=== PATIENT | female | born 1960 | race Caucasian/White ===

== ENCOUNTER → 2016-05-01 | Outpatient (CLI) | payer OTHER ==
--- NOTE | 2016-05-01 20:02 | WWHP ---
DATE OF SERVICE: 05/01/2016 CHIEF COMPLAINT: Patient is here for her routine gynecologic exam and mammogram. HPI: This is a 55-year-old G3, P2-0-1-2 with an LMP of 1988. She is status post vaginal hysterectomy for benign reasons. The patient is without gynecologic complaints. PAST MEDICAL HISTORY: Unremarkable. Her primary care physician is Dr. Li. MEDICATIONS: Centrum multivitamin 1 daily. ALLERGIES: No known drug allergies. PAST SURGICAL HISTORY: Vaginal hysterectomy at age 28. Past [employer] and family histories are unchanged from the 2015 H&P. SOCIAL HISTORY: She denies tobacco use. She has 0 to 2 alcoholic drinks per week and states she occasionally uses marijuana. She denies any other drug use. She has been a since 2006 and is retired. REVIEW OF SYSTEMS: Weight has been stable. RESPIRATORY: She is getting over a cold. She denies cardiac or GI problems. PHYSICAL EXAM: Blood pressure 153/92. Height 5 feet 4 inches. Weight 163 pounds. Temperature 97.2, pulse 71. This a well-developed, well-nourished white female who is alert and oriented x3 in no acute distress. HEENT is within normal limits. NECK: Supple without mass or thyromegaly. CHEST AND LUNGS: Clear to auscultation. HEART: Regular rate and rhythm. Breasts are without mass or discharge. There is central nipple inversion which she states she had throughout most of her life. Axillary exam is negative for adenopathy. BACK: Negative for CVA tenderness. ABDOMEN: Soft, nontender, without palpable masses. PELVIC EXAM: External genitalia reveals mild atrophy without lesions. Vagina reveals mild atrophy without lesions. There is no evidence of prolapse. Bimanual exam is negative for mass or tenderness. Rectovaginal exam is negative for mass or tenderness and is negative for occult blood. EXTREMITIES: Nontender. IMPRESSION: 1. A 55-year-old menopausal female, status post vaginal hysterectomy for benign reasons with normal gynecologic exam. 2. Elevated blood pressure. PLAN: 1. Pap smears have been discontinued. 2. Self-breast examination was discussed. 3. Mammogram will be done today. 4. Her blood pressure elevation was discussed, and I have recommended that she follow up with her primary care physician in the near future. She states she has an appointment with Dr. Li on 05/09/2016 and will discuss this with him. I have also recommended home blood pressure checks since she does have access to blood pressure machine. 5. Screening colonoscopy was recommended, since she has never had this done and Dr. Bran's card was given to patient for this. 6. Osteoporosis prevention was discussed. 7. She will return in one year. Copy being sent to Dr. Li and no longer being sent to Dr. Castro.
--- NOTE | 2016-05-02 08:10 | MM ---
Reason for exam: screening (asymptomatic). Last mammogram was performed 1 year and 4 months ago. Physical Findings: A clinical breast exam by your physician is recommended on an annual basis and results should be correlated with mammographic findings. MG 3D Screening Mammo W/Cad Bilateral CC and MLO view(s) were taken. Prior study comparison: January 10, 2015, bilateral MG screening mammo w CAD. January 04, 2014, bilateral MG screening mammo w CAD. The breast tissue is almost entirely fat. Asymmetric breast tissue in the right breast. No significant changes when compared with prior studies. ASSESSMENT: Benign, BI-RAD 2 RECOMMENDATION: Routine screening mammogram of both breasts in 1 year.
== END | disposition home or self-care (01) ==
LOC: WWCWWP 09:02
PROVIDERS: ATTEND Obstetrics & Gynecology
DX: Z12.31 Encounter for screening mammogram for malignant neoplasm of breast (principal)
CPT/HCPCS: 77063; G0202

== ENCOUNTER → 2016-09-18 | Outpatient (CLI) | payer OTHER ==
--- NOTE | 2016-09-18 10:02 | XR ---
EXAMINATION TYPE: XR chest 2V DATE OF EXAM: 09/18/2016 COMPARISON: NONE INDICATION: Recent cough TECHNIQUE: Frontal and lateral views of the chest are obtained. FINDINGS: The heart size is normal. The pulmonary vasculature is normal. The lungs are clear. IMPRESSION: 1. No acute pulmonary process.
== END | disposition home or self-care (01) ==
LOC: RADXRMAIN 09:22
PROVIDERS: ATTEND Internal Medicine
DX: J06.9 Acute upper respiratory infection, unspecified (principal)
CPT/HCPCS: 71020

== ENCOUNTER → 2017-03-24 | Outpatient (CLI) | payer OTHER ==
[2017-03-24 12:12] LABS: Basophils % (A) 0 %; Eosinophils # (A) 0.1 k/uL (0-0.7); Eosinophils % (A) 2 %; HCT 47.3 % (34.0-46.0); HGB 15.2 gm/dL (11.4-16.0); Lymphocytes # (A) 1.4 k/uL (1.0-4.8); Lymphocytes % (A) 18 %; MCH 32.3 pg (25.0-35.0); MCHC 32.2 g/dL (31.0-37.0); MCV 100.4 fL (80.0-100.0); Mean Platelet Volume 7.5; Monocytes # (A) 0.4 k/uL (0-1.0); Monocytes % (A) 5 %; Neutrophils # (A) 5.7 k/uL (1.3-7.7); Neutrophils % (A) 74 %; Platelet Count 312 k/uL (150-450); RBC 4.72 m/uL (3.80-5.40); RDW 12.6 % (11.5-15.5); WBC 7.8 k/uL (3.8-10.6)
[2017-03-24 12:25] LABS: ALT 44 U/L (9-52); AST 31 U/L (14-36); Albumin 4.4 g/dL (3.5-5.0); Alkaline Phosphatase 105 U/L (38-126); Anion Gap 11 mmol/L; Blood Urea Nitrogen 11 mg/dL (7-17); Carbon Dioxide 27 mmol/L (22-30); Chloride 104 mmol/L (98-107); Cholesterol 237 mg/dL (<200); Creatine Kinase 27 U/L (30-135); Glucose 103 mg/dL (74-99); HDL Cholesterol 89 mg/dL (40-60); LDL Cholesterol,Calculated 121 mg/dL (0-99); Potassium 4.6 mmol/L (3.5-5.1); Sodium 142 mmol/L (137-145); Total Bilirubin 0.3 mg/dL (0.2-1.3); Total Protein 7.2 g/dL (6.3-8.2); Triglycerides 137 mg/dL (<150)
[2017-03-24 13:56] LABS: C Reactive Protein <5.0 mg/L (<10.0)
[2017-03-24 14:38] LABS: Erythrocyte Sedimentation Rate 7 mm/hr (0-20)
== END | disposition home or self-care (01) ==
LOC: LABWHC1 11:35
PROVIDERS: ATTEND Internal Medicine
DX: Z00.00 Encounter for general adult medical examination without abnormal findings (principal); G47.00 Insomnia, unspecified; D64.9 Anemia, unspecified; E78.5 Hyperlipidemia, unspecified; E55.9 Vitamin D deficiency, unspecified
CPT/HCPCS: 36415; 80053; 80061; 82306; 82550; 85025; 85652; 86140

== ENCOUNTER 2017-05-03 10:50 | Emergency (ER) | payer OTHER ==
[2017-05-03 10:59] VITALS: RESP 16
--- NOTE | 2017-05-03 13:47 | XR ---
EXAMINATION TYPE: XR foot complete RT , 3 VIEWS DATE OF EXAM ORDERED: 05/03/2017 HISTORY: Pain. COMPARISON: None. FINDINGS: No fracture or dislocation is seen. There is a plantar calcaneal spur. IMPRESSION: 1. NO ACUTE OSSEOUS LESION. 2. CALCANEAL SPUR.
--- NOTE | 2017-05-03 13:58 | ED ---
Extremity Problem HPI - General Chief complaint: Extremity Problem,Nontraumatic Stated complaint: swollen feet Time Seen by Provider: 05/03/17 11:31 Source: patient Mode of arrival: wheelchair Limitations: physical limitation - History of Present Illness Initial comments: Planing about the foot pain for last couple days, she said she does walk quite a bit denies any trauma any fall she didn't slip and she has no chronic pain in the foot also complaining about some swelling on the top of the foot and some swelling in the distal right leg. Denies any history of 5 DVT denies any history of PE. No chest pain or shortness of breath no abdominal pain no neuro deficit consistent with a CVA or TIA - Related Data Previous Rx's Medication Instructions Recorded Cephalexin [Keflex] 500 mg PO Q8HR #30 cap 05/03/17 traMADol HCL [Ultram] 50 mg PO Q8H PRN #30 tab 05/03/17 Allergies Allergy/AdvReac Type Severity Reaction Status Date / Time No Known Allergies Allergy Verified 05/03/17 12:41 Review of Systems ROS Statement: Those systems with pertinent positive or pertinent negative responses have been documented in the HPI. ROS Other: All systems not noted in ROS Statement are negative. Past Medical History Past Medical History: No Reported History History of Any Multi-Drug Resistant Organisms: None Reported Past Surgical History: Hysterectomy Past Psychological History: No Psychological Hx Reported Smoking Status: Never smoker Past Alcohol Use History: Occasional Past Drug Use History: None Reported General Exam - General Exam Comments Initial Comments: General: The patient is awake and alert, in no distress, and does not appear acutely ill. Skin: Skin is warm and dry and no rashes or lesions are noted. Eye: Pupils are equal, round and reactive to light, extra-ocular movements are intact; there is normal conjunctiva bilaterally. Ears, nose, mouth and throat: There are moist mucous membranes and no oral lesions. Neck: The neck is supple, there is no tenderness or JVD. Cardiovascular: There is a regular rate and rhythm. No murmur, rub or gallop is appreciated. Respiratory: To auscultation bilateral, no wheezing no rhonchi no distress respiratory simeon noticed Gastrointestinal: Soft, non-distended, non-tender abdomen without masses or organomegaly noted. There is no rebound or guarding present. Bowel sounds are unremarkable. Back: There is no tenderness to palpation in the midline. There is no obvious deformity. Musculoskeletal: Normal ROM, with upper or lower extremities, noticed some swelling at the dorsal surface of the right foot, its distal at the distal end of the metatarsals especially second third and fourth no neurovascular compromise noticed. capillaryRefill is within normal range him and it is some localized erythema is warm and is tender to touch exam consistent with a localized cellulitis Neurological: CN II-XII intact, Cranial nerves III through XII are intact. There are no obvious motor or sensory deficits. Coordination appears grossly intact. Speech is normal. Psychiatric: Cooperative, appropriate mood & affect, normal judgment. Limitations: physical limitation Course Vital Signs 05/03/17 10:56 Temperature 98.2 F Pulse Rate 88 Respiratory 16 Rate Blood Pressure 150/102 O2 Sat by Pulse 96 Oximetry Patient was reassessed at term 1345, d-dimer and x-ray reviewed both are unremarkable this was discussed with the patient patient does have a cellulitis of the dorsal surface of the right foot begun him on a Keflex and tramadol for the pain patient was at advised to use some ice or warm compresses Medical Decision Making - Lab Data Lab Results 05/03/17 Range/Units 12:49 D-Dimer 0.20 (<0.60) mg/L FEU Disposition Clinical Impression: Cellulitis of foot Disposition: HOME SELF-CARE Condition: Good Instructions: Cellulitis (ED) Prescriptions: Cephalexin [Keflex] 500 mg PO Q8HR #30 cap traMADol HCL [Ultram] 50 mg PO Q8H PRN #30 tab PRN Reason: Pain Referrals: Chan Li MD [Primary Care Provider] - 1-2 days
[2017-05-03] MEDS ORDERED: KETOROLAC 30 MG/ML 1 ML VIAL IM STA (14:05)
[2017-05-03 14:13] VITALS: BP 152/91; PULSE 83; TEMP 97.2
== END 2017-05-03 14:13 | disposition home or self-care (01) ==
LOC: EC 10:50
DX: L03.115 Cellulitis of right lower limb (principal)
CPT/HCPCS: 36415; 85379; 73630; 99283; 96372; J1885

== ENCOUNTER → 2017-05-06 | Outpatient (CLI) | payer OTHER | END | disposition home or self-care (01) | LOC: LABWHC1 12:28 | PROVIDERS: ATTEND Internal Medicine | DX: M10.9 Gout, unspecified (principal) | CPT/HCPCS: 36415; 84550 ==

== ENCOUNTER → 2017-05-14 | Outpatient (CLI) | payer OTHER ==
--- NOTE | 2017-05-14 10:16 | MM ---
Reason for exam: additional evaluation requested from prior study. Last mammogram was performed 1 year ago. Physical Findings: Nurse did not find any significant physical abnormalities on exam. MG 3D Diag Mammo W/Cad KAMERON Bilateral CC and MLO view(s) were taken. Prior study comparison: May 01, 2016, bilateral MG 3d screening mammo w/cad. January 10, 2015, bilateral MG screening mammo w CAD. There are scattered fibroglandular densities. No suspicious calcifications are seen. Stable bilateral nipple inversion. These results were verbally communicated with the patient and result sheet given to the patient on 05/14/17. ASSESSMENT: Benign, BI-RAD 2 RECOMMENDATION: Routine screening mammogram of both breasts in 1 year. Manage patient on a clinical basis.
== END | disposition home or self-care (01) ==
LOC: RADMAMWWP 09:18
PROVIDERS: ATTEND Internal Medicine
DX: N64.53 Retraction of nipple (principal)
CPT/HCPCS: 77066; G0279

== ENCOUNTER → 2017-05-21 | Outpatient (CLI) | payer OTHER ==
--- NOTE | 2017-05-21 11:19 | XR ---
EXAMINATION TYPE: XR foot complete LT DATE OF EXAM: 05/21/2017 COMPARISON: NONE HISTORY: Fell pain edema TECHNIQUE: Three-view left foot FINDINGS: There is loss of the first metatarsophalangeal joint space. No periarticular erosion is lorraine dent. Soft tissue swelling is over the distal foot. No acute fractures are evident. Alignment appears preserved. Plantar calcaneal heel spur is present. IMPRESSION: 1. Degenerative joint changes first metatarsal phalangeal joint space. 2. Soft tissue swelling distal foot. 3. Plantar calcaneal heel spur
[2017-05-21 11:30] LABS: Basophils % (A) 0 %; Eosinophils # (A) 0.1 k/uL (0-0.7); Eosinophils % (A) 1 %; HCT 41.1 % (34.0-46.0); HGB 13.8 gm/dL (11.4-16.0); Lymphocytes # (A) 1.3 k/uL (1.0-4.8); Lymphocytes % (A) 15 %; MCH 32.5 pg (25.0-35.0); MCHC 33.7 g/dL (31.0-37.0); MCV 96.4 fL (80.0-100.0); Mean Platelet Volume 6.9; Monocytes # (A) 0.5 k/uL (0-1.0); Monocytes % (A) 6 %; Neutrophils # (A) 6.7 k/uL (1.3-7.7); Neutrophils % (A) 77 %; Platelet Count 297 k/uL (150-450); RBC 4.26 m/uL (3.80-5.40); RDW 11.9 % (11.5-15.5); WBC 8.7 k/uL (3.8-10.6)
[2017-05-21 16:40] LABS: DNA Double-Stranded NEGATIVE (NEGATIVE)
== END | disposition home or self-care (01) ==
LOC: RADXRMAIN 10:31
PROVIDERS: ATTEND Internal Medicine
DX: M77.32 Calcaneal spur, left foot (principal); M10.9 Gout, unspecified
CPT/HCPCS: 36415; 84550; 85025; 86038; 86225

== ENCOUNTER 2017-11-20 08:46 | Emergency (ER) | payer OTHER ==
--- NOTE | 2017-11-20 09:16 | ED ---
Extremity Problem HPI - General Chief complaint: Extremity Problem,Nontraumatic Stated complaint: rt foot swelling Time Seen by Provider: 11/20/17 09:06 Source: patient, RN notes reviewed Mode of arrival: ambulatory Limitations: no limitations - History of Present Illness Initial comments: 57-year-old female presents emergency Department chief complaint of right foot swelling. She states she's been having some issues for last 6 months but in the last 1 week she's had more swelling that she's ever had is on alleviated with her gout medications or with elevation. She states it was worse because she recently moved and was seen anymore and walking more than usual. She denies any calf pain, paresthesias, shortness breath, fever or chills. She states that she did not have any known injury. She's had no prior fractures or any prior trauma. - Related Data Previous Rx's Medication Instructions Recorded Cephalexin [Keflex] 500 mg PO Q8HR #30 cap 05/03/17 traMADol HCL [Ultram] 50 mg PO Q8H PRN #30 tab 05/03/17 Ibuprofen [Motrin] 600 mg PO Q8HR PRN #30 tab 11/20/17 Allergies Allergy/AdvReac Type Severity Reaction Status Date / Time No Known Allergies Allergy Verified 11/20/17 09:04 Review of Systems ROS Statement: Those systems with pertinent positive or pertinent negative responses have been documented in the HPI. ROS Other: All systems not noted in ROS Statement are negative. Past Medical History Past Medical History: Hypertension Additional Past Medical History / Comment(s): gout osteoporosis History of Any Multi-Drug Resistant Organisms: None Reported Past Surgical History: Hysterectomy Past Psychological History: No Psychological Hx Reported Smoking Status: Never smoker Past Alcohol Use History: Occasional Past Drug Use History: None Reported General Exam Limitations: no limitations General appearance: alert, in no apparent distress Head exam: Present: atraumatic, normocephalic, normal inspection Respiratory exam: Present: normal lung sounds bilaterally. Absent: respiratory distress, wheezes, rales, rhonchi, stridor Cardiovascular Exam: Present: regular rate, normal rhythm, normal heart sounds. Absent: systolic murmur, diastolic murmur, rubs, gallop, clicks Extremities exam: Present: other (Right foot there is moderate edema noted 1+ pitting pedal pulses equal bilaterally Refill less than 2 seconds there is no calf tenderness wanted equal bilaterally to extremities ) Skin exam: Present: warm, dry, intact, normal color. Absent: rash Course Vital Signs 11/20/17 08:58 Temperature 97.5 F L Pulse Rate 83 Respiratory 18 Rate Blood Pressure 160/106 O2 Sat by Pulse 96 Oximetry Medical Decision Making - Medical Decision Making 57-year-old female presents emergency from for right foot swelling for last 1 week. Patient states she's had on-and-off issues with the right foot for swelling. Patient initially was told was go. She states in the last week with increased movement she's had increased swelling. Patient lab work, ultrasound, x-ray which showed no acute abnormality. Patient was started on anti- inflammatories and follow-up with orthopedics for further evaluation if no improvement. - Lab Data Result diagrams: 11/20/17 09:29 11/20/17 09:29 Lab Results 11/20/17 11/20/17 11/20/17 Range/Units 09:29 09:29 09:29 WBC 6.6 (3.8-10.6) k/uL RBC 4.43 (3.80-5.40) m/uL Hgb 14.7 (11.4-16.0) gm/dL Hct 45.2 (34.0-46.0) % MCV 102.0 H (80.0-100.0) fL MCH 33.1 (25.0-35.0) pg MCHC 32.4 (31.0-37.0) g/dL RDW 12.6 (11.5-15.5) % Plt Count 225 (150-450) k/uL Neutrophils % 75 % Lymphocytes % 15 % Monocytes % 7 % Eosinophils % 1 % Basophils % 0 % Neutrophils # 4.9 (1.3-7.7) k/uL Lymphocytes # 1.0 (1.0-4.8) k/uL Monocytes # 0.5 (0-1.0) k/uL Eosinophils # 0.1 (0-0.7) k/uL Basophils # 0.0 (0-0.2) k/uL Macrocytosis Slight PT 9.4 (9.0-12.0) sec INR 0.9 (<1.2) APTT 23.7 (22.0-30.0) sec Sodium 141 (137-145) mmol/L Potassium 4.1 (3.5-5.1) mmol/L Chloride 106 (98-107) mmol/L Carbon Dioxide 28 (22-30) mmol/L Anion Gap 7 mmol/L BUN 7 (7-17) mg/dL Creatinine 0.56 (0.52-1.04) mg/dL Est GFR (CKD-EPI)AfAm >90 (>60 ml/min/1.73 sqM) Est GFR (CKD-EPI)NonAf >90 (>60 ml/min/1.73 sqM) Glucose 132 H (74-99) mg/dL Uric Acid 4.3 (3.7-7.4) mg/dL Calcium 9.9 (8.4-10.2) mg/dL Total Bilirubin 0.5 (0.2-1.3) mg/dL AST 56 H (14-36) U/L ALT 56 H (9-52) U/L Alkaline Phosphatase 90 (38-126) U/L C-Reactive Protein 35.6 H (<10.0) mg/L NT-Pro-B Natriuret Pep pg/mL Total Protein 7.3 (6.3-8.2) g/dL Albumin 4.4 (3.5-5.0) g/dL 11/20/17 Range/Units 09:29 WBC (3.8-10.6) k/uL RBC (3.80-5.40) m/uL Hgb (11.4-16.0) gm/dL Hct (34.0-46.0) % MCV (80.0-100.0) fL MCH (25.0-35.0) pg MCHC (31.0-37.0) g/dL RDW (11.5-15.5) % Plt Count (150-450) k/uL Neutrophils % % Lymphocytes % % Monocytes % % Eosinophils % % Basophils % % Neutrophils # (1.3-7.7) k/uL Lymphocytes # (1.0-4.8) k/uL Monocytes # (0-1.0) k/uL Eosinophils # (0-0.7) k/uL Basophils # (0-0.2) k/uL Macrocytosis PT (9.0-12.0) sec INR (<1.2) APTT (22.0-30.0) sec Sodium (137-145) mmol/L Potassium (3.5-5.1) mmol/L Chloride (98-107) mmol/L Carbon Dioxide (22-30) mmol/L Anion Gap mmol/L BUN (7-17) mg/dL Creatinine (0.52-1.04) mg/dL Est GFR (CKD-EPI)AfAm (>60 ml/min/1.73 sqM) Est GFR (CKD-EPI)NonAf (>60 ml/min/1.73 sqM) Glucose (74-99) mg/dL Uric Acid (3.7-7.4) mg/dL Calcium (8.4-10.2) mg/dL Total Bilirubin (0.2-1.3) mg/dL AST (14-36) U/L ALT (9-52) U/L Alkaline Phosphatase (38-126) U/L C-Reactive Protein (<10.0) mg/L NT-Pro-B Natriuret Pep 172 pg/mL Total Protein (6.3-8.2) g/dL Albumin (3.5-5.0) g/dL Disposition Clinical Impression: Edema of right foot, Right foot sprain Disposition: HOME SELF-CARE Condition: Stable Instructions: Edema (ED) Additional Instructions: Please return to the Emergency Department if symptoms worsen or any other concerns. Prescriptions: Ibuprofen [Motrin] 600 mg PO Q8HR PRN #30 tab PRN Reason: Pain Is patient prescribed a controlled substance at d/c from ED?: No Referrals: Chan Li MD [Primary Care Provider] - 1-2 days Fer Macias MD [Medical Doctor] - 1-2 days Time of Disposition: 11:28
[2017-11-20 09:57] LABS: Basophils % (A) 0 %; Eosinophils # (A) 0.1 k/uL (0-0.7); Eosinophils % (A) 1 %; HCT 45.2 % (34.0-46.0); HGB 14.7 gm/dL (11.4-16.0); Lymphocytes % (A) 15 %; MCH 33.1 pg (25.0-35.0); MCHC 32.4 g/dL (31.0-37.0); Macrocytosis Slight; Mean Platelet Volume 7.1; Monocytes # (A) 0.5 k/uL (0-1.0); Monocytes % (A) 7 %; Neutrophils # (A) 4.9 k/uL (1.3-7.7); Neutrophils % (A) 75 %; Platelet Count 225 k/uL (150-450); RBC 4.43 m/uL (3.80-5.40); RDW 12.6 % (11.5-15.5); WBC 6.6 k/uL (3.8-10.6)
[2017-11-20 10:10] LABS: ALT 56 U/L (9-52); AST 56 U/L (14-36); Albumin 4.4 g/dL (3.5-5.0); Alkaline Phosphatase 90 U/L (38-126); Anion Gap 7 mmol/L; Blood Urea Nitrogen 7 mg/dL (7-17); C Reactive Protein 35.6 mg/L (<10.0); Calcium 9.9 mg/dL (8.4-10.2); Carbon Dioxide 28 mmol/L (22-30); Chloride 106 mmol/L (98-107); Glucose 132 mg/dL (74-99); Potassium 4.1 mmol/L (3.5-5.1); Sodium 141 mmol/L (137-145); Total Bilirubin 0.5 mg/dL (0.2-1.3); Total Protein 7.3 g/dL (6.3-8.2); Uric Acid 4.3 mg/dL (3.7-7.4)
[2017-11-20 10:12] LABS: INR 0.9 (<1.2); Partial Thromboplastin Time 23.7 sec (22.0-30.0); Prothrombin Time 9.4 sec (9.0-12.0)
--- NOTE | 2017-11-20 10:27 | XR ---
EXAMINATION TYPE: XR foot complete RT DATE OF EXAM: 11/20/2017 COMPARISON: 05/03/2017 HISTORY: Pain TECHNIQUE: Three-view right foot FINDINGS: Soft tissue swelling is over the dorsum of the foot. Plantar calcaneal heel spur is present . No acute displaced fractures are evident. Joint spaces appear preserved. IMPRESSION: 1. Soft tissue swelling over the dorsum of the distal foot. 2. No acute osseous abnormality evident.
--- NOTE | 2017-11-20 11:25 | US ---
EXAMINATION TYPE: US venous doppler duplex LE RT DATE OF EXAM: 11/20/2017 11:01 AM COMPARISON: NONE CLINICAL HISTORY: Pain. Intermittent right foot swelling for 1 year SIDE PERFORMED: right TECHNIQUE: The lower extremity deep venous system is examined utilizing real time linear array sonog sebastián with graded compression, doppler sonography and color-flow sonography. VESSELS IMAGED: External Iliac Vein (EIV) Common Femoral Vein Deep Femoral Vein Greater Saphenous Vein * Femoral Vein Popliteal Vein Small Saphenous Vein * Proximal Calf Veins (* superficial vessels) Right Leg: No evidence of DVT IMPRESSION: 1. Right lower extremity deep venous ultrasound negative for deep venous thrombosis.
[2017-11-20 11:40] VITALS: BP 163/96; PULSE 63; RESP 16; TEMP 96.8
== END 2017-11-20 11:43 | disposition home or self-care (01) ==
LOC: EC 08:46
DX: S93.601A Unspecified sprain of right foot, initial encounter (principal); M10.9 Gout, unspecified; X50.3XXA Overexertion from repetitive movements, initial encounter; Y93.01 Activity, walking, marching and hiking
CPT/HCPCS: 36415; 80053; 83880; 84550; 85025; 85610; 85730; 86140; 99284

== ENCOUNTER → 2017-12-01 | Outpatient (CLI) | payer OTHER ==
[2017-12-01 17:35] LABS: Folate, Serum >24.0 ng/mL
== END | disposition home or self-care (01) ==
LOC: LABWHC1 08:33
PROVIDERS: ATTEND Internal Medicine
DX: D64.9 Anemia, unspecified (principal); D75.89 Other specified diseases of blood and blood-forming organs
CPT/HCPCS: 36415; 82607; 82746

== ENCOUNTER → 2018-06-15 | Outpatient (CLI) | payer OTHER ==
[2018-06-15 11:13] LABS: Basophils % (A) 0 %; Eosinophils # (A) 0.2 k/uL (0-0.7); Eosinophils % (A) 3 %; HCT 44.2 % (34.0-46.0); HGB 14.6 gm/dL (11.4-16.0); Lymphocytes # (A) 1.3 k/uL (1.0-4.8); Lymphocytes % (A) 18 %; MCH 31.7 pg (25.0-35.0); MCV 96.2 fL (80.0-100.0); Mean Platelet Volume 7.4; Monocytes # (A) 0.4 k/uL (0-1.0); Monocytes % (A) 5 %; Neutrophils # (A) 5.4 k/uL (1.3-7.7); Neutrophils % (A) 74 %; Platelet Count 317 k/uL (150-450); RBC 4.59 m/uL (3.80-5.40); RDW 12.3 % (11.5-15.5); WBC 7.3 k/uL (3.8-10.6)
[2018-06-15 14:52] LABS: Erythrocyte Sedimentation Rate 9 mm/hr (0-20)
[2018-06-15 16:23] LABS: ALT 19 U/L (8-44); AST 18 U/L (13-35); Albumin/Globulin Ratio 2.37 (1.60-3.17); Alkaline Phosphatase 100 U/L (41-126); C Reactive Protein <0.4 mg/dL (0.0-0.8); Calcium 9.8 mg/dL (8.7-10.3); Carbon Dioxide 29.1 mmol/L (21.6-31.8); Chloride 108 mmol/L (96-109); Cholesterol 195 mg/dL (0-200); Creatine Kinase 46 U/L (26-186); Globulin 1.9 g/dL (1.6-3.3); Glucose 107 mg/dL (70-110); Potassium 4.5 mmol/L (3.5-5.5); Sodium 143 mmol/L (135-145); Total Bilirubin 0.3 mg/dL (0.3-1.2); Total Protein 6.4 g/dL (6.2-8.2); Uric Acid 6.3 mg/dL (2.9-7.7)
== END | disposition home or self-care (01) ==
LOC: LABWHC1 10:00
PROVIDERS: ATTEND Internal Medicine
DX: Z00.00 Encounter for general adult medical examination without abnormal findings (principal); E78.5 Hyperlipidemia, unspecified; I10 Essential (primary) hypertension; E55.9 Vitamin D deficiency, unspecified
CPT/HCPCS: 36415; 80053; 80061; 82272; 82306; 82550; 84550; 85025; 85652; 86140

== ENCOUNTER 2018-06-19 22:03 | Emergency (ER) | payer OTHER ==
[2018-06-19 22:11] LABS: Glucose,Whole Blood 118 mg/dL (75-99)
[2018-06-19] MEDS ORDERED: SODIUM CHLORIDE 0.9% 1,000 ML IV STA (22:12)
--- NOTE | 2018-06-19 22:17 | ED ---
Syncope HPI - General Chief Complaint: Syncope Stated Complaint: Syncope Time Seen by Provider: 06/19/18 22:11 Source: EMS Mode of arrival: EMS Limitations: no limitations - History of Present Illness Initial Comments: Lisbet is a pleasant 58-year-old female who presents the emergency department today via EMS for evaluation after an apparent syncopal episode at home. Patient reports she's been in her usual state of health throughout the day, this evening she was sitting in her son's garage talking to him. She reports that she did drink to talk and beer. She states that she then was sitting there and apparently passed out. She reports that she did not follow for she slumped backwards in the chair. She denies any chest pain palpitations or shortness of breath preceding the event. She woke up and knew where she wasn't recognized her son. He became concerned and called 911 for transport to the hospital. Patient reports that she has no history of passing out. She has no cardiac history. She reports that she feels completely fine in if her symptoms are not insisted she would not come the hospital for this. Son and [id number] arrived at bedside expressed concern that the patient doesn't eat or drink enough throughout the day. Takes was concerned that she may of been dehydrated. The post witnessed the episode of her passing out and state that she didn't have any seizure-like activity showed no postictal period. Son states that this in his he notices one passed out he checked her pulse and noted that she was still breathing he shook her and she woke up. - Related Data Home Medications Medication Instructions Recorded Confirmed Multivitamins, Thera [Multivitamin 1 tab PO DAILY 06/19/18 06/19/18 (formulary)] Allergies Allergy/AdvReac Type Severity Reaction Status Date / Time No Known Allergies Allergy Verified 06/19/18 22:12 Review of Systems ROS Statement: Those systems with pertinent positive or pertinent negative responses have been documented in the HPI. ROS Other: All systems not noted in ROS Statement are negative. Past Medical History Past Medical History: Hypertension Additional Past Medical History / Comment(s): gout osteoporosis History of Any Multi-Drug Resistant Organisms: None Reported Past Surgical History: Hysterectomy Past Psychological History: No Psychological Hx Reported Smoking Status: Never smoker Past Alcohol Use History: Occasional Past Drug Use History: Marijuana General Exam - General Exam Comments Initial Comments: Physical Exam GENERAL: Patient is well-developed and well-nourished. Patient is nontoxic and well- hydrated and is in no distress. HENT: Normocephalic, Atraumatic. EYES: PERRL, EOMI PULMONARY: Unlabored respirations. No audible rales rhonchi or wheezing was noted. CARDIOVASCULAR: There is a regular rate and rhythm without any murmurs gallops or rubs. ABDOMEN: Soft and nontender with normal bowel sounds. SKIN: Skin is clear with no lesions or rashes and otherwise unremarkable. : Deferred NEUROLOGIC: Patient is alert and oriented x3. Moving all extremities spontaneously MUSCULOSKELETAL: Normal extremities with adequate strength and full range of motion. No lower extremity swelling or edema. No calf tenderness. PSYCHIATRIC: Normal psychiatric evaluation. Limitations: no limitations home Limitations: no limitations Course Vital Signs 06/19/18 06/19/18 06/20/18 22:05 22:35 01:44 Temperature 98.2 F 97.3 F L Pulse Rate 74 77 75 Respiratory 18 18 14 Rate Blood Pressure 128/82 117/78 110/97 O2 Sat by Pulse 98 98 95 Oximetry EKG Findings - EKG Comments: EKG Findings:: EKG was obtained at 2208, rate is 75) sinusitis there is a leftward deviation there is normal intervals, SD 148, QRS 74, QTC [address] elevations or depressions no evidence of acute ischemia or infarction. Medical Decision Making - Medical Decision Making The patient was seen and evaluated history was obtained from the patient, EMS and family at bedside The previously healthy 4-year-old female who has a previous history of hypertension which is now controlled with diet and exercise. She is currently not taking any antihypertensive medications. She presents the emergency department after an apparent syncopal episode while sitting in a chair home, after drinking 2 tall cans of beer. Patient denies any complaints EKG with no signs of ischemia or arrhythmia Patient's workup was negative aside for hypokalemia. These results were discussed with the patient and family at bedside. Proper nutrition was discussed all questions pertaining care were answered the patient was eager for discharge home. - Lab Data Result diagrams: 06/19/18 22:16 06/19/18 22:16 Lab Results 06/19/18 06/19/18 06/19/18 Range/Units 22:10 22:16 22:16 WBC 6.4 (3.8-10.6) k/uL RBC 4.48 (3.80-5.40) m/uL Hgb 14.6 (11.4-16.0) gm/dL Hct 42.3 (34.0-46.0) % MCV 94.3 (80.0-100.0) fL MCH 32.7 (25.0-35.0) pg MCHC 34.6 (31.0-37.0) g/dL RDW 14.1 (11.5-15.5) % Plt Count 287 (150-450) k/uL Neutrophils % 57 % Lymphocytes % 34 % Monocytes % 5 % Eosinophils % 3 % Basophils % 0 % Neutrophils # 3.6 (1.3-7.7) k/uL Lymphocytes # 2.2 (1.0-4.8) k/uL Monocytes # 0.3 (0-1.0) k/uL Eosinophils # 0.2 (0-0.7) k/uL Basophils # 0.0 (0-0.2) k/uL PT (9.0-12.0) sec INR (<1.2) APTT (22.0-30.0) sec Sodium 142 (137-145) mmol/L Potassium 3.1 L (3.5-5.1) mmol/L Chloride 116 H (98-107) mmol/L Carbon Dioxide 18 L (22-30) mmol/L Anion Gap 8 mmol/L BUN 9 (7-17) mg/dL Creatinine 0.43 L (0.52-1.04) mg/dL Est GFR (CKD-EPI)AfAm >90 (>60 ml/min/1.73 sqM) Est GFR (CKD-EPI)NonAf >90 (>60 ml/min/1.73 sqM) Glucose 85 (74-99) mg/dL POC Glucose (mg/dL) 118 H (75-99) mg/dL POC Glu Development Educator ID Edy Ellington Calcium 7.5 L (8.4-10.2) mg/dL Magnesium 1.6 (1.6-2.3) mg/dL Total Bilirubin 0.4 (0.2-1.3) mg/dL AST 22 (14-36) U/L ALT 21 (9-52) U/L Alkaline Phosphatase 52 (38-126) U/L Troponin I (0.000-0.034) ng/mL Total Protein 5.2 L (6.3-8.2) g/dL Albumin 2.9 L (3.5-5.0) g/dL Serum Alcohol 51 mg/dL 06/19/18 06/19/18 Range/Units 23:28 23:28 WBC (3.8-10.6) k/uL RBC (3.80-5.40) m/uL Hgb (11.4-16.0) gm/dL Hct (34.0-46.0) % MCV (80.0-100.0) fL MCH (25.0-35.0) pg MCHC (31.0-37.0) g/dL RDW (11.5-15.5) % Plt Count (150-450) k/uL Neutrophils % % Lymphocytes % % Monocytes % % Eosinophils % % Basophils % % Neutrophils # (1.3-7.7) k/uL Lymphocytes # (1.0-4.8) k/uL Monocytes # (0-1.0) k/uL Eosinophils # (0-0.7) k/uL Basophils # (0-0.2) k/uL PT 9.7 (9.0-12.0) sec INR 0.9 (<1.2) APTT 20.0 L (22.0-30.0) sec Sodium (137-145) mmol/L Potassium (3.5-5.1) mmol/L Chloride (98-107) mmol/L Carbon Dioxide (22-30) mmol/L Anion Gap mmol/L BUN (7-17) mg/dL Creatinine (0.52-1.04) mg/dL Est GFR (CKD-EPI)AfAm (>60 ml/min/1.73 sqM) Est GFR (CKD-EPI)NonAf (>60 ml/min/1.73 sqM) Glucose (74-99) mg/dL POC Glucose (mg/dL) (75-99) mg/dL POC Glu Development Educator ID Calcium (8.4-10.2) mg/dL Magnesium (1.6-2.3) mg/dL Total Bilirubin (0.2-1.3) mg/dL AST (14-36) U/L ALT (9-52) U/L Alkaline Phosphatase (38-126) U/L Troponin I <0.012 (0.000-0.034) ng/mL Total Protein (6.3-8.2) g/dL Albumin (3.5-5.0) g/dL Serum Alcohol mg/dL Disposition Clinical Impression: Fainting spell, Hypokalemia Disposition: HOME SELF-CARE Condition: Stable Instructions (If sedation given, give patient instructions): Syncope (DC) Is patient prescribed a controlled substance at d/c from ED?: No Referrals: Chan Li MD [Primary Care Provider] - 1-2 days
[2018-06-19 22:33] LABS: Basophils % (A) 0 %; Eosinophils # (A) 0.2 k/uL (0-0.7); Eosinophils % (A) 3 %; HCT 42.3 % (34.0-46.0); HGB 14.6 gm/dL (11.4-16.0); Lymphocytes # (A) 2.2 k/uL (1.0-4.8); Lymphocytes % (A) 34 %; MCH 32.7 pg (25.0-35.0); MCHC 34.6 g/dL (31.0-37.0); MCV 94.3 fL (80.0-100.0); Mean Platelet Volume 9.4; Monocytes # (A) 0.3 k/uL (0-1.0); Monocytes % (A) 5 %; Neutrophils # (A) 3.6 k/uL (1.3-7.7); Neutrophils % (A) 57 %; Platelet Count 287 k/uL (150-450); RBC 4.48 m/uL (3.80-5.40); RDW 14.1 % (11.5-15.5); WBC 6.4 k/uL (3.8-10.6)
[2018-06-19 22:41] LABS: Chloride 116 mmol/L (98-107); Glucose 85 mg/dL (74-99); Sodium 142 mmol/L (137-145)
[2018-06-19 22:42] LABS: Albumin 2.9 g/dL (3.5-5.0); Alcohol 51 mg/dL; Anion Gap 8 mmol/L; Blood Urea Nitrogen 9 mg/dL (7-17); Calcium 7.5 mg/dL (8.4-10.2); Carbon Dioxide 18 mmol/L (22-30); Total Bilirubin 0.4 mg/dL (0.2-1.3); Total Protein 5.2 g/dL (6.3-8.2)
--- NOTE | 2018-06-19 23:05 | XR ---
EXAM: XR Chest, 2 Views CLINICAL HISTORY: ITS.REASON XR Reason: Chest Pain TECHNIQUE: Frontal and lateral views of the chest. COMPARISON: 09/18/16 FINDINGS: Lungs: No visualized air space consolidation. Left basilar atelectasis. Pleural space: Unremarkable. No pneumothorax. Heart: Unremarkable. No cardiomegaly. Mediastinum: Unremarkable. Bones/joints: Degenerative disc changes. IMPRESSION: No acute cardiopulmonary findings.
[2018-06-20 00:21] LABS: ALT 21 U/L (9-52); AST 22 U/L (14-36); Alkaline Phosphatase 52 U/L (38-126); Magnesium 1.6 mg/dL (1.6-2.3); Potassium 3.1 mmol/L (3.5-5.1)
[2018-06-20 00:42] LABS: INR 0.9 (<1.2); Prothrombin Time 9.7 sec (9.0-12.0)
[2018-06-20 01:45] VITALS: BP 110/97; PULSE 75; RESP 14; TEMP 97.3
== END 2018-06-20 02:05 | disposition home or self-care (01) ==
LOC: EC 22:03
DX: E87.6 Hypokalemia (principal); R55 Syncope and collapse; I10 Essential (primary) hypertension
CPT/HCPCS: 36415; 93005; 80053; 83735; 84484; 85025; 85610; 85730; 71046; 99285; 96360; G0480; 80320

== ENCOUNTER → 2018-06-25 | Outpatient (CLI) | payer OTHER ==
--- NOTE | 2018-06-25 09:17 | US ---
EXAMINATION TYPE: US carotid duplex BILAT DATE OF EXAM: 06/25/2018 COMPARISON: NONE CLINICAL HISTORY: R55 syncope. Syncope EXAM MEASUREMENTS: RIGHT: Peak Systolic Velocity (PSV) cm/sec ----- Right CCA: 82.9 ----- Right ICA: 79.6 ----- Right ECA: 109.6 ICA/CCA ratio: 1.0 RIGHT: End Diastole cm/sec ----- Right CCA: 30.5 ----- Right ICA: 34.9 ----- Right ECA: 27.3 LEFT: Peak Systolic Velocity (PSV) cm/sec ----- Left CCA: 83.8 ----- Left ICA: 93.1 ----- Left ECA: 68.1 ICA/CCA ratio: 1.1 LEFT: End Diastole cm/sec ----- Left CCA: 27.6 ----- Left ICA: 40.1 ----- Left ECA: 18.3 VERTEBRALS (direction of flow): Right Vertebral: Antegrade Left Vertebral: Antegrade Rhythm: Normal Bilateral intimal thickening, no elevated velocities, no significant stenosis. IMPRESSION: There is intimal thickening with no significant hemodynamic stenosis identified bilatera lllan. Criteria for Assigning % of Stenosis / Diameter reduction (Estimation based on the indirect measurements of the internal carotid artery velocities (ICA PSV). 1. Normal (no stenosis)=ICA PSV < 125 cm/s: ratio < 2.0: ICA EDV<40 cm/s. 2. Less than 50% stenosis=ICA PSV < 125 cm/s: ratio < 2.0: ICA EDV<40 cm/s. 3. 50 to 69% stenosis=ICA PSV of 125 to 230 cm/s: ration 2.0 ? 4.0: ICA EDV 40-100 cm/s. 4. Greater than 70% stenosis to near occlusion= ICA PSV > 230 cm/s: ratio > 4.0: ICA EDV > 100 cm/s. 5. Near occlusion= ICA PSV velocities may be low or undetectable: variable ratio and ICA EDV. 6. Total occlusion=unable to detect flow.
--- NOTE | 2018-06-25 10:32 | CT ---
EXAMINATION TYPE: CT brain w con DATE OF EXAM: 06/25/2018 COMPARISON: None INDICATION: Syncopal episodes DLP: 1049.8 mGycm, Automated exposure control for dose reduction was used. CONTRAST: 100 mL Isovue-300 CT of the brain is performed utilizing 3 mm thick sections through the posterior fossa and 3 mm thick sections through the remaining calvarium. Study is performed within 24 hours of arrival to the hosp ital. No abnormal hyperdensity is present to suggest an acute intracranial hemorrhage. There is however prominent extra-axial space adjacent to the right temporal lobe extending to the rig ht parietal region. Subarachnoid hemorrhage should be considered. Prior cortical infarct be considere d. No acute infarcts are evident. No suspicious changes within the bilateral basal ganglion which can be associated with carbon monoxide poisoning are evident. No suspicious enhancement is evident. Ventricles and sulci are appropriate for the patient age. Paranasal sinuses are clear. Some minimal fluid is within the inferior most portion of the left masto id air cells. IMPRESSIONS: 1. Suspected subarachnoid cyst right middle cranial fossa extending along to the right parietal ext ra-axial space. Old encephalomalacia such as from prior infarct or trauma could be considered. 2. No suspicious acute intracranial process. 3. Minimal inferior left mastoiditis may be present.
== END | disposition home or self-care (01) ==
LOC: RADUSMAIN 07:34
PROVIDERS: ATTEND Internal Medicine
DX: R55 Syncope and collapse (principal)
CPT/HCPCS: 93880; 70460; Q9967

== ENCOUNTER 2018-07-06 08:46 | Emergency (ER) | payer OTHER ==
--- NOTE | 2018-07-06 09:45 | ED ---
Lower Extremity Injury HPI <Bradford Ivory - Last Filed: 07/06/18 11:12> - General Source: patient, RN notes reviewed Mode of arrival: wheelchair Limitations: no limitations <Pedro Pablo Mack - Last Filed: 07/06/18 11:36> - General Chief Complaint: Extremity Injury, Lower Stated Complaint: Foot pain Time Seen by Provider: 07/06/18 09:36 - History of Present Illness Initial Comments: 58-year-old female presents emergency Department chief complaint a left ankle injury. Patient states she was walking down her stairs states her ankle gave out. She claims that she has weak ankles and states that she just felt she rolled her ankle, more pain today. Patient's pain is diffusely over the ankles and noticed some bruising. No paresthesias. Denies any pain proximal to her left ankle. (Pedro Pablo Mack) - Related Data Home Medications Medication Instructions Recorded Confirmed Multivitamin/Iron/Folic Acid 1 tab PO DAILY 07/06/18 07/06/18 [Centrum Women Tablet] Allergies Allergy/AdvReac Type Severity Reaction Status Date / Time No Known Allergies Allergy Verified 07/06/18 09:59 Review of Systems ROS Other: All systems not noted in ROS Statement are negative. <Bradford Ivory - Last Filed: 07/06/18 11:12> ROS Other: All systems not noted in ROS Statement are negative. <Pedro Pablo Mack - Last Filed: 07/06/18 11:36> ROS Statement: Those systems with pertinent positive or pertinent negative responses have been documented in the HPI. Past Medical History Past Medical History: Hypertension Additional Past Medical History / Comment(s): gout osteoporosis History of Any Multi-Drug Resistant Organisms: None Reported Past Surgical History: Hysterectomy Past Psychological History: No Psychological Hx Reported Smoking Status: Never smoker Past Alcohol Use History: Occasional Past Drug Use History: Marijuana <Pedro Pablo Mack - Last Filed: 07/06/18 11:36> General Exam Limitations: no limitations General appearance: alert, in no apparent distress Head exam: Present: atraumatic, normocephalic, normal inspection Respiratory exam: Present: normal lung sounds bilaterally. Absent: respiratory distress, wheezes, rales, rhonchi, stridor Cardiovascular Exam: Present: regular rate, normal rhythm, normal heart sounds. Absent: systolic murmur, diastolic murmur, rubs, gallop, clicks Extremities exam: Present: other (Left lower extremity over the ankle there is moderate swelling, ecchymosis and tenderness over the lateral and medial malleolus, there is no foot tenderness pedal pulses equal bilaterally, there is no proximal tib-fib tenderness. He has pain with range of motion left ankle) Skin exam: Present: warm, dry, intact, normal color. Absent: rash <Pedro Pablo Mack - Last Filed: 07/06/18 11:36> Course Vital Signs 07/06/18 07/06/18 07/06/18 09:15 11:03 11:05 Temperature 98.1 F Pulse Rate 96 78 86 Respiratory 16 16 16 Rate Blood Pressure 114/81 128/90 133/81 O2 Sat by Pulse 97 99 99 Oximetry 07/06/18 07/06/18 07/06/18 11:10 11:15 11:20 Temperature Pulse Rate 101 H 70 75 Respiratory 20 18 18 Rate Blood Pressure 138/88 144/96 141/88 O2 Sat by Pulse 99 100 100 Oximetry 07/06/18 07/06/18 11:25 11:30 Temperature Pulse Rate 64 70 Respiratory 16 18 Rate Blood Pressure 145/88 135/96 O2 Sat by Pulse 99 97 Oximetry Procedures - Orthopedic Fracture Reduction Fracture #1 Consent Obtained: verbal consent, written consent Side: left Fracture Reduction Location: tibia Analgesia: procedural sedation Technique: direct manipulation, traction/counter-traction Post-Reduction Neuro Exam: intact Post-Reduction Vascular Exam: intact Splint Applied: Yes Patient Tolerated Procedure: well, no complications - Procedural Sedation Procedural Sedation Start Time: 11:03 Procedural Sedation Stop Time: 11:24 Indications: fracture/dislocation reduction Preparation: cardiac catheterization technologist applied, pulse oximeter, capnometry used, supplemental O2 applied IV Etomidate Dose (mgs): 14 Complications: none Patient Tolerated Procedure: well, no complications <Bradford Ivory - Last Filed: 07/06/18 11:12> Medical Decision Making <Pedro Pablo Mack - Last Filed: 07/06/18 11:36> - Medical Decision Making 58-year-old female presented for left ankle injury. Patient had evidence of bimalleolar fracture with subluxation. Patient uncles was reduced under conscious sedation with Dr. Ivory. Patient tolerated well patient will follow- up with on-call orthopedics return parameters were discussed. (Pedro Pablo Mack) Disposition <Bradford Ivory - Last Filed: 07/06/18 11:12> Is patient prescribed a controlled substance at d/c from ED?: No Time of Disposition: 11:36 <Pedro Pablo Mack - Last Filed: 07/06/18 11:36> Clinical Impression: Bimalleolar ankle fracture Disposition: HOME SELF-CARE Condition: Stable Instructions (If sedation given, give patient instructions): Ankle Fracture (ED) Additional Instructions: Please return to the Emergency Department if symptoms worsen or any other concerns. Referrals: Chan Li MD [Primary Care Provider] - 1-2 days Bogdan Hogan DO [Doctor of Osteopathic Medicine] - 1-2 days
--- NOTE | 2018-07-06 10:01 | XR ---
EXAMINATION TYPE: XR ankle complete LT DATE OF EXAM: 07/06/2018 COMPARISON: None HISTORY: Fall 2 days prior, pain contusion swelling TECHNIQUE: Three-view left ankle FINDINGS: There is lateral subluxation of the talus in relation to the tibia. There is an oblique fracture of the distal metaphyseal fibula. There is a fracture of the medial mall eolus. This may be comminuted. There is some subtle lucency within the posterior tibia on the lateral projection. Posterior tibial f racture cannot be excluded. Displaced fracture fragment however is not identified. Consider CT to chato luate for possible posterior tibial fracture. Plantar calcaneal heel spur is present. There is diffuse soft tissue swelling. Additional fractures a re not identified. IMPRESSION: 1. Bimalleolar fracture with lateral subluxation of the talus in relation to the tibia. 2. A tiny nondisplaced tibial fracture cannot be excluded on the basis of this examination. Trimalleo lar fracture should be considered. Consider CT of the ankle for further evaluation.
[2018-07-06] MEDS ORDERED: ETOMIDATE 2 MG/ML 10 ML VIAL IVP STA ×2 (10:22→11:06)
--- NOTE | 2018-07-06 11:36 | XR ---
EXAMINATION TYPE: XR ankle limited LT DATE OF EXAM: 07/06/2018 COMPARISON: Earlier ankle exam HISTORY: Post reduction left ankle fracture TECHNIQUE: 2 view left ankle through a fiberglass cast FINDINGS: There is reduction of the fractures. The ankle mortise is visualized appears intact. There is mild soft tissue swelling present. Posterior tibial fracture is not clearly identified on these im ages. IMPRESSION: 1. Reduction of a subluxed talus at the left ankle. 2. Bimalleolar fracture. Please see prior dictation as well.
[2018-07-06] MEDS ORDERED: SODIUM CHLORIDE 0.9% 1,000 ML IV STA (11:38)
[2018-07-06] MEDS ORDERED: ACET/COD 300 MG/30 MG STARTER PACK 6 TAB BTL PO STA (11:40)
[2018-07-06] MEDS ORDERED: HYDROcodone/APAP 7.5-325MG 1 EACH TAB PO ONE (12:17)
[2018-07-06 12:30] VITALS: BP 140/89; PULSE 85; RESP 18; TEMP 97
== END 2018-07-06 12:28 | disposition home or self-care (01) ==
LOC: EC 08:46
DX: S82.842A Displaced bimalleolar fracture of left lower leg, initial encounter for closed fracture (principal); Z87.39 Personal history of other diseases of the musculoskeletal system and connective tissue; X50.1XXA Overexertion from prolonged static or awkward postures, initial encounter; Y93.01 Activity, walking, marching and hiking; Y92.009 Unspecified place in unspecified non-institutional (private) residence as the place of occurrence of the external cause
CPT/HCPCS: 27810; 96360; 99152; 99283

== ENCOUNTER 2018-07-10 11:10 | Observation (INO) | payer OTHER ==
[2018-07-09 09:01] VITALS: BMI 27.4
--- NOTE | 2018-07-10 10:14 | HP ---
HISTORY AND PHYSICAL Surgery is scheduled for today, 07/10/2018. Lisbet Reynaga is a 58-year-old patient seen with a left ankle trimalleolar fracture. I recommended open reduction, internal fixation. I discussed procedure, risks, complications, benefits, recovery. She was agreeable. Consent was obtained her. PAST MEDICAL HISTORY: Her past medical history is noncontributory. PAST SURGICAL HISTORY: Past surgical history is noncontributory. DAILY MEDICATIONS: Daily medications are typically none, but recently [place] secondary to her fracture. ALLERGIES: Allergies are none reported. SOCIAL HISTORY: She is retired. PHYSICAL EXAMINATION: Physical evaluation of her left ankle: She has some diffuse tenderness along the medial lateral malleoli. There is moderate swelling. No fracture blisters or open wounds. No tenderness along the hindfoot, midfoot, or forefoot. She has good perfusion sensation distally. She has pedal pulse present. Radiographs of the left ankle revealed a trimalleolar fracture with displacement. IMPRESSION: Left ankle trimalleolar fracture. PLAN: Open reduction, internal fixation, left ankle trimalleolar fracture. MMODL / IJN: [id number] /
[~2018-07-10 11:10] MED LIST: DEXAMETHASONE SOD PHOSPHATE 10 MG/ML 1 ML VIAL IV ONE; HYDROmorphone 0.5 MG/0.5 ML SYRINGE IVP PRN; MIDAZOLAM (PF) 2 MG/2 ML VIAL IV PRN; ONDANSETRON 4 MG/2 ML VIAL IVP ONE; SCOPOLAMINE 1.5MG/72HR PATCH TRANSDERM ONE
[2018-07-10] MEDS: LACTATED RINGERS 1,000 ML IV SCH (11:51)
[2018-07-10] MEDS ORDERED: LIDOCAINE 1% 20 ML VIAL (10MG/ML) FOR IV START IV ONE (11:54)
[2018-07-10 11:59] LABS: HCT 39.4 % (34.0-46.0); HGB 13.7 gm/dL (11.4-16.0); MCH 32.8 pg (25.0-35.0); MCHC 34.7 g/dL (31.0-37.0); MCV 94.5 fL (80.0-100.0); Mean Platelet Volume 7.9; Platelet Count 348 k/uL (150-450); RBC 4.17 m/uL (3.80-5.40); RDW 12.6 % (11.5-15.5); WBC 7.9 k/uL (3.8-10.6)
[2018-07-10 12:14] LABS: ALT 26 U/L (9-52); AST 23 U/L (14-36); Albumin 4.1 g/dL (3.5-5.0); Alkaline Phosphatase 103 U/L (38-126); Anion Gap 6 mmol/L; Blood Urea Nitrogen 7 mg/dL (7-17); Calcium 9.7 mg/dL (8.4-10.2); Carbon Dioxide 27 mmol/L (22-30); Chloride 107 mmol/L (98-107); Glucose 104 mg/dL (74-99); Sodium 140 mmol/L (137-145); Total Bilirubin 0.8 mg/dL (0.2-1.3); Total Protein 6.7 g/dL (6.3-8.2)
[2018-07-10] MEDS ORDERED: fentaNYL (PF) 50 MCG/ML 2 ML AMP ONE (12:56)
[2018-07-10] MEDS ORDERED: PROPOFOL 10 MG/ML 20 ML VIAL IV ONE (12:56)
[2018-07-10] MEDS ORDERED: MIDAZOLAM 2 MG/2 ML VIAL ONE (12:56)
[2018-07-10] MEDS ORDERED: SODIUM CHLORIDE 0.9% 50 ML with ceFAZolin 1,000 MG IV ONE ×2 (13:25)
[2018-07-10] MEDS ORDERED: ceFAZolin 1,000 MG in SODIUM CHLORIDE 0.9% 1,000 ML IRRIGATION ONE (13:25)
[2018-07-10] MEDS ORDERED: HYDROcodone/APAP 5-325MG 1 EACH TAB PO PRN (14:26)
[2018-07-10] MEDS ORDERED: LACTATED RINGERS 1,000 ML IV ONE ×2 (14:26)
[2018-07-10] MEDS ORDERED: HYDROmorphone 0.5 MG/0.5 ML SYRINGE IVP PRN (14:26)
[2018-07-10] MEDS ORDERED: ONDANSETRON 4 MG/2 ML VIAL IVP PRN (14:26)
--- NOTE | 2018-07-10 14:28 | XR ---
Fluoroscopy INDICATION: Pain FINDINGS: Fluoroscopy time: 5 seconds. Images obtained: 3. IMPRESSIONS: 1. Documentation of fluoroscopy.
--- NOTE | 2018-07-10 14:29 | P.OP ---
Date of Procedure: 07/10/18 Preoperative Diagnosis: Left ankle trimalleolar fracture Postoperative Diagnosis: Same Procedure(s) Performed: Open reduction and internal fixation left ankle trimalleolar fracture Implants: Synthes 6 hole one third semitubular plate as well as appropriate length 3.5 and 4.0 Synthes screws Anesthesia: spinal Surgeon: Bogdan Hogan Estimated Blood Loss (ml): 15 Pathology: none sent Condition: stable Disposition: PACU Indications for Procedure: 58-year-old patient seen with a displaced left ankle trimalleolar fracture. I recommended open reduction internal fixation. I discussed the procedure, risks, complications and recovery. The patient was agreeable and consent was obtained. Operative Findings: See description of procedure Description of Procedure: The patient was taken to the operative suite. The patient was given preoperative IV antibiotics. The patient underwent a spinal anesthetic by the department anesthesia. A well-padded tourniquet placed proximal left thigh. Left lower extremity was prepped and draped in the normal sterile fashion. The extremity was elevated and tourniquet insufflated to 300. I made an incision over the lateral malleolus sharply through skin. Blunt dissection taken down to the fracture site. Hematoma evacuated. It was displaced lateral malleolar fracture. This was reduced with [id number] bone reduction clamp. We had a good reduction noted. I chose a one third semitubular 6-hole plate and appropriately contoured. It was secured. Appropriate drill holes were made and appropriate length screws were inserted all had good bite and purchase. The clamp was removed. We appeared to have good fixation good position of fracture. C-arm was brought in confirming. C-arm was brought out. I now made an incision along the ear the medial malleolus sharply through skin. Dissection stayed on a fracture site. Hematoma was evacuated. There was a comminuted fracture. It was reduced. 2-45 mm partially-threaded 4.0 mm screws were in serted with good fixation of the medial malleolar fragment noted. The C-arm was brought back into the operative field noting good reduction and adequate positioning of the fracture and internal fixation. The mortise was now restored and congruent. The posterior malleolar fracture was about 10% with mild displacement with adequate alignment at this point. The wound was irrigated copiously with antibiotic irrigant. The subcutaneous soft tissues were approximated with 2-0 Vicryl. Skin yoana were utilized to repair skin both medially and laterally. Sterile dressings were applied. Tourniquet was released and immediate capillary refill of all digits noted. We then placed patient into a well-padded modified bulky Ivory splint with position. Patient was awakened and transferred to bed and recovery in stable condition.
[2018-07-10] MEDS: HYDROcodone/APAP 5-325MG 1 EACH TAB PO PRN (17:46)
[2018-07-10] MEDS: ceFAZolin IN SWFI 2 GM/20 ML SYRINGE IVP SCH (19:51)
[2018-07-10] MEDS: HYDROmorphone 1 MG/ML 1 ML SYRINGE IVP PRN (23:46)
[2018-07-11 02:49] VITALS: RESP 16
[2018-07-11] MEDS: HYDROmorphone 1 MG/ML 1 ML SYRINGE IVP PRN (04:17)
[2018-07-11] MEDS: ceFAZolin IN SWFI 2 GM/20 ML SYRINGE IVP SCH (04:19)
[2018-07-11] MEDS: LACTATED RINGERS 1,000 ML IV SCH (05:10)
[2018-07-11 08:24] VITALS: BP 131/78; PULSE 66; TEMP 98.4
[2018-07-11] MEDS: HYDROcodone/APAP 5-325MG 1 EACH TAB PO PRN (08:47)
[2018-07-11] MEDS ORDERED: ENOXAPARIN 40 MG/0.4 ML SYRINGE SQ SCH (09:00)
--- NOTE | 2018-07-11 11:25 | P.PN ---
Subjective Progress Note Date: 07/11/18 Principal diagnosis: Status post ORIF left ankle trimalleolar fracture Patient evaluated today at bedside, she is resting comfortably. She admits to discomfort involving the left ankle. She states she didn't sleep very well. She denies any chest pain, shortness of breath, nausea vomiting. Objective - Vital Signs Vital signs: Vital Signs Temp 98.4 F 07/11/18 07:35 Pulse 66 07/11/18 07:35 Resp 16 07/11/18 07:35 BP 131/78 07/11/18 07:35 Pulse Ox 97 07/11/18 07:35 Intake & Output 07/10/18 07/11/18 07/11/18 18:59 06:59 18:59 Intake Total 1201 Output Total 715 Balance 486 Intake: IV 1201 Output: Urine 700 Estimated Blood Loss 15 Other: # Voids 2 1 - Exam Left lower extremity: Postop splint is in good position and condition. Minimal soft tissue swelling in the toes, she is able wiggle the toes and no difficulty. Sensation to light touch both proximal distal to this point are intact. Skin is warm to touch. - Labs CBC & Chem 7: 07/10/18 11:50 07/10/18 11:50 Labs: Abnormal Lab Results - Last 24 Hours (Table) 07/10/18 Range/Units 11:50 Creatinine 0.47 L (0.52-1.04) mg/dL Glucose 104 H (74-99) mg/dL Assessment and Plan Plan: Assessment: 1. Postop day #1 status post ORIF left ankle trimalleolar fracture Plan: Pain control, will increase oral medication on discharge GI and DVT prophylaxis, aspirin 325 mg daily Nonweightbearing left lower extremity, ice and elevate often Utilize crutches Medical recommendations Plan for discharge home today Time with Patient: Less than 30
--- NOTE | 2018-07-11 11:33 | P.DS ---
Providers Date of admission: 07/11/18 00:38 Expected date of discharge: 07/11/18 Attending physician: Bogdan Hogan Primary care physician: Chan Li Hospital Course: Date of admission: 07/10/2018 Date of discharge: 07/11/2018 Admission diagnosis: Status post ORIF left ankle trimalleolar fracture Discharge diagnosis: Same Attending physician: Dr. Hogan Surgical procedures: Open reduction internal fixation left ankle trimalleolar fracture Brief history: Patient is a 58-year-old female with a history of recent left ankle injury. She was evaluated in the outpatient setting by Dr. Hogan. It was determined patient will need surgical intervention. Patient scheduled for an open reduction internal fixation procedure on 07/10/2018. Hospital course: Details of patient's surgery can be found in operative report. Patient tolerated the procedure well and was subsequently transported to orthopedic floor. Patient's orthopeidc and medical care was provided daily. Patient had daily laboratory tests performed for evaluation of overall blood counts. Patient had daily physical therapy to include strengthening range of motion as well as education with walker ambulation. Patient was treated with Lovenox for their postoperative DVT prophylaxis during their inpatient stay. Patient was noted to have a relatively uneventful postoperative course. Patient reported satisfactory pain control with oral pain medications by postoperative day 0. Patient showed satisfactory progress with physical therapy. Patient moved steadily through the program and had no difficulty meeting the goals by postoperative day 1. Given patient's otherwise satisfactory course and having met physical therapy goals, plan is to discharge patient home on postoperative day 1. Discharge condition/disposition: Patient will be discharged home in stable condition. Discharge medications: Instructions are given on resumption of patient's normal daily medications per primary care recommendation, in addition patient will be prescribed [place] 7.5 mg/325 mg, tramadol 50 mg. Discharge instructions: 1. Wound care and infection precautions, keep incision dry and covered while showering, no lotions, creams, moisturizers. No soaking, tubs, pools, hottubs. Do not scrub over the incision. 2. Nonweightbearing left lower extremity, utilize crutches at all times 3. Ice and elevate when necessary. Do not exceed 20 minutes per hour with ice pack. 4. Utilize compression sleeve until seen at first follow up appointment. 7. Pain meds and anticoagulants per prescription. 8. Pain medication has potential to cause constipation. Increase oral fluid and fiber intake. Contact primary care provider if you have not had a bowel movement within 48 hours after discharge 9. No anti-inflammatory medication until discussed at first post operative visit, this including Motrin, Aleve, Mobic, Diclofenac. 10. Follow up in office at 2 weeks postop with Harish Hylton PA-C 11. Follow up with your primary care doctor 7-10 days after discharge. 12. Contact [facility] with any questions, . Procedures: Open reduction internal fixation left ankle trimalleolar fracture Patient Condition at Discharge: Good Plan - Discharge Summary Discharge Rx Participant: Yes New Discharge Prescriptions: New HYDROcodone/APAP 7.5-325MG [[place] 7.5] 1 - 2 each PO Q6HR PRN #56 tab PRN Reason: Pain traMADol HCl [Ultram] 50 mg PO Q6H PRN #28 tab PRN Reason: Pain No Action Multivitamin/Iron/Folic Acid [Centrum Women Tablet] 1 tab PO DAILY Aspirin 325 mg PO DAILY Vitamin Otc (Unknown Name) 1 tab PO DAILY Discharge Medication List Multivitamin/Iron/Folic Acid [Centrum Women Tablet] 1 tab PO DAILY 07/06/18 [History] Aspirin 325 mg PO DAILY 07/09/18 [History] Vitamin Otc (Unknown Name) 1 tab PO DAILY 07/09/18 [History] HYDROcodone/APAP 7.5-325MG [[place] 7.5] 1 - 2 each PO Q6HR PRN #56 tab 07/11/18 [Rx] traMADol HCl [Ultram] 50 mg PO Q6H PRN #28 tab 07/11/18 [Rx] Follow up Appointment(s)/Referral(s): Silvestre Hylton PAC [PHYSICIAN SOFTWARE TEST MANAGER] - 2 Weeks Activity/Diet/Wound Care/Special Instructions: Discharge instructions: 1. Nonweightbearing left lower extremity 2. Utilize crutches when ambulating 3. Do not remove splint, keep covered and dry while showering 4. Resume aspirin daily for DVT prophylaxis 5. Follow-up at [facility] in 2 weeks Discharge Disposition: HOME SELF-CARE
== END 2018-07-11 17:58 | disposition home or self-care (01) ==
LOC: OR 11:10 → 4SSUR 14:14 → OR 07-11 00:37 → 4SSUR 07-11 00:38
PROVIDERS: ADMIT Orthopaedic Surgery; ATTEND Orthopaedic Surgery
DX: S82.852A Displaced trimalleolar fracture of left lower leg, initial encounter for closed fracture (principal); X58.XXXA Exposure to other specified factors, initial encounter; I10 Essential (primary) hypertension; M10.9 Gout, unspecified; Z79.82 Long term (current) use of aspirin; Z79.899 Other long term (current) drug therapy
CPT/HCPCS: 27822; 80053; 85027; 73600; G0378; C1713; J2250; J1100; J2405; J0690 ×3; J1650; J3010; J1170 ×3; J2704

== ENCOUNTER → 2018-09-07 | Outpatient (CLI) | payer OTHER ==
--- NOTE | 2018-09-07 13:53 | MR ---
EXAMINATION TYPE: MR brain wo/w con DATE OF EXAM: 09/07/2018 COMPARISON: 06/25/2018 HISTORY: Vasovagal syncope TECHNIQUE: Multiplanar, multisequence images of the brain and brainstem is performed without and with IV contras t, utilizing 7 mL intravenous Gadavist . FINDINGS: Diffusion weighted images demonstrate no evidence of a recent infarct or other diffusion ab normality. There is no extra-axial fluid collection. Focal area of encephalomalacia within the left christian radiata of the posterior frontal lobe is seen with mild gliosis of the right frontal white mat ter surrounding the extra-axial loculated fluid collection and additional few punctate foci of deep w celestino matter gliosis also seen. The ventricular system and cisternal spaces are normal in size and swapna earance. The brain volume is age appropriate. Multiloculated T2 hyperintense and FLAIR hypointense CSF intensity structure begins within the middle cranial fossa extending cranially along the right cerebral hemisphere and extra-axial location. This has mass effect on the right temporal lobe, parietal lobe, and frontal lobes and measures a maximum anterior to posterior dimension of 8.5 cm including all components in greatest thickness of 2.0 cm. T his does have surrounding T2/FLAIR hyperintense gliosis of the peripheral gyri, particularly within t he right frontal lobe. Midline structures demonstrate normal morphology. The craniocervical junction appears within normal limits. Post contrast images demonstrate no abnormal enhancement. Specifically there is no abnormal enhancement along the extra-axial loculated right hemispheric mass. The dural venous sinuses appear p atent. The visualized sinuses demonstrate scant mucosal thickening in the ethmoid sinuses but are oth erwise clear and the globes are intact. Minimal fluid is also seen within the most inferior aspect of the mastoid air cells bilaterally. IMPRESSION: 1. Benign-appearing loculated extra-axial fluid collection originating from the right middle cranial fossa extending into the supratentorial right hemisphere cranial vault. This demonstrates no internal complexity or enhancement and is favored to represent a large multiloculated arachnoid cyst with alt ernative less likely consideration for a chronic multiloculated subdural hygroma. There is slight mas s effect on the adjacent peripheral sulci of the right frontal lobe, temporal lobe and parietal lobe with minimal gliosis. 2. Few foci of nonspecific white matter change and left posterior frontal deep white matter lacunar i nfarct with central encephalomalacia. 3. Minimal amount of fluid in the bilateral mastoid air cells. Correlate clinically for mastoiditis.
== END | disposition home or self-care (01) ==
LOC: RADMRIMAIN 11:02
PROVIDERS: ATTEND Psychiatry & Neurology Neurology
DX: I63.81 Other cerebral infarction due to occlusion or stenosis of small artery (principal); G93.89 Other specified disorders of brain; R90.89 Other abnormal findings on diagnostic imaging of central nervous system
CPT/HCPCS: 70553; A9585

== ENCOUNTER → 2018-09-14 | Outpatient (CLI) | payer OTHER ==
[2018-09-14 16:26] LABS: C Reactive Protein 1.1 mg/dL (0.0-0.8); LDL Cholesterol,Calculated 107.4 mg/dL (0.0-131.0); VLDL Calculation 18.6 mg/dL (5.00-40.00)
== END | disposition home or self-care (01) ==
LOC: LABWHC1 09:25
PROVIDERS: ATTEND Internal Medicine
DX: E78.5 Hyperlipidemia, unspecified (principal)
CPT/HCPCS: 36415; 80061; 82550; 85652; 86140

== ENCOUNTER → 2018-09-16 | Outpatient (CLI) | payer OTHER ==
--- NOTE | 2018-09-21 07:33 | MM ---
Reason for exam: screening (asymptomatic). Last mammogram was performed 1 year and 4 months ago. History: Patient is postmenopausal. Physical Findings: A clinical breast exam by your physician is recommended on an annual basis and results should be correlated with mammographic findings. MG Screening Mammo w CAD Bilateral CC and MLO view(s) were taken. Prior study comparison: May 14, 2017, bilateral MG 3d diag mammo w/cad [facility]. May 01, 2016, bilateral MG 3d screening mammo w/cad. There are scattered fibroglandular densities. No significant new finding when compared with prior studies. ASSESSMENT: Negative, BI-RAD 1 RECOMMENDATION: Routine screening mammogram of both breasts in 1 year.
== END | disposition home or self-care (01) ==
LOC: RADMAMWWP 13:40
PROVIDERS: ATTEND Internal Medicine
DX: Z12.31 Encounter for screening mammogram for malignant neoplasm of breast (principal)
CPT/HCPCS: 77067

== ENCOUNTER → 2019-10-27 | Outpatient (CLI) | payer OTHER ==
--- NOTE | 2019-10-27 09:56 | XR ---
EXAMINATION TYPE: XR knee complete LT DATE OF EXAM: 10/27/2019 COMPARISON: NONE HISTORY: 59 year-old female left knee effusion, M25.4 TECHNIQUE: 3 views FINDINGS: The mild bony spurring on the medial aspect of the distal femoral metaphysis. Prepatellar soft tissue swelling. Trace knee joint effusion. Extensor mechanism appears intact. No acute fracture, subluxati on, dislocation. IMPRESSION: 1. Prepatellar soft tissue swelling/contusion. Correlate to exclude infection or prepatellar bursitis . 2. Trace knee joint effusion. 3. Some medial sided bony spurring may be seen with a remote MCL injury. 4. No acute osseous anomaly seen.
--- NOTE | 2019-10-27 10:09 | XR ---
EXAMINATION TYPE: XR wrist complete LT DATE OF EXAM: 10/27/2019 COMPARISON: NONE HISTORY: 59-year-old female M25.532, left wrist pain from fall TECHNIQUE: 4 views FINDINGS: There is sandro widening of the scapholunate interval up to 4.5 mL. Corticated ossific density measuri ng 3 mm at the ulnar carpal joint. Lucencies extend to the distal radial physis into both the radioscaphoid and radiolunate joint spaces . No significant articular surface consistent. Marked soft tissue swelling. Moderate to severe degenerative change first CMC and triscaphe joints. IMPRESSION: 1. Nondisplaced intra-articular fractures of the distal radial epiphysis. No sandro articular surface incongruence is seen. 2. Sandro disruption of the scapholunate ligament with widening of the interval. 3. Large circumferential soft tissue swelling. 4. Osteoarthritic changes at the base of the thumb.
[2019-10-27 10:18] LABS: Basophils % (A) 0 %; Eosinophils # (A) 0.2 k/uL (0-0.7); Eosinophils % (A) 2 %; HCT 45.6 % (34.0-46.0); HGB 14.9 gm/dL (11.4-16.0); Lymphocytes # (A) 1.2 k/uL (1.0-4.8); Lymphocytes % (A) 14 %; MCH 32.7 pg (25.0-35.0); MCHC 32.8 g/dL (31.0-37.0); MCV 99.8 fL (80.0-100.0); Monocytes # (A) 0.5 k/uL (0-1.0); Monocytes % (A) 5 %; Neutrophils % (A) 78 %; Platelet Count 357 k/uL (150-450); RBC 4.56 m/uL (3.80-5.40); WBC 8.9 k/uL (3.8-10.6)
[2019-10-27 13:33] LABS: Erythrocyte Sedimentation Rate 8 mm/hr (0-20)
[2019-10-27 14:14] LABS: ALT 21 U/L (4-34); AST 26 U/L (14-36); African American GFR (CKD) >90 (>60 ml/min/1.73 sqM); Albumin 4.4 g/dL (3.5-5.0); Alkaline Phosphatase 121 U/L (38-126); Anion Gap 8 mmol/L; Blood Urea Nitrogen 11 mg/dL (7-17); Calcium 9.7 mg/dL (8.4-10.2); Carbon Dioxide 22 mmol/L (22-30); Chloride 109 mmol/L (98-107); Cholesterol 220 mg/dL (<200); Glucose 111 mg/dL (74-99); HDL Cholesterol 76 mg/dL (40-60); LDL Cholesterol,Calculated 109 mg/dL (0-99); Non-African American GFR(CKD) >90 (>60 ml/min/1.73 sqM); Potassium 4.2 mmol/L (3.5-5.1); Sodium 139 mmol/L (137-145); Total Bilirubin 0.5 mg/dL (0.2-1.3); Total Protein 7.1 g/dL (6.3-8.2); Triglycerides 177 mg/dL (<150)
== END | disposition home or self-care (01) ==
LOC: RADXRMAIN 08:13
PROVIDERS: ATTEND Internal Medicine
DX: S52.572A Other intraarticular fracture of lower end of left radius, initial encounter for closed fracture (principal); S63.592A Other specified sprain of left wrist, initial encounter; M19.032 Primary osteoarthritis, left wrist; S80.02XA Contusion of left knee, initial encounter; M76.892 Other specified enthesopathies of left lower limb, excluding foot; Z00.00 Encounter for general adult medical examination without abnormal findings; D64.9 Anemia, unspecified; E87.8 Other disorders of electrolyte and fluid balance, not elsewhere classified; E83.51 Hypocalcemia; E78.5 Hyperlipidemia, unspecified; E55.9 Vitamin D deficiency, unspecified
CPT/HCPCS: 80053; 80061; 82306; 85025; 85652

== ENCOUNTER → 2020-02-22 | Outpatient (CLI) | payer OTHER ==
[2020-02-22 09:14] VITALS: BP 164/92; PULSE 69; RESP 18; TEMP 97.5
--- NOTE | 2020-02-22 10:13 | P.HPOB ---
History of Present Illness H&P Date: 02/22/20 Chief Complaint: The patient is here for her routine gynecologic exam and ma mmogram. This is a 59-year-old with an LMP of 1990. The patient is status post vaginal hysterectomy for benign reasons. The patient is without gynecologic complaints. Review of Systems She has gained about 6 pounds over the past 3 years. She denies respiratory, cardiac, or GI problems. 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 History of Any Multi-Drug Resistant Organisms: None Reported Past Surgical History: Hysterectomy Additional Past Surgical History / Comment(s): Vaginal hysterectomy at age 28. Past Anesthesia/Blood Transfusion Reactions: No Reported Reaction Past Psychological History: No Psychological Hx Reported Smoking Status: Never smoker Past Alcohol Use History: Occasional (12 per week) Past Drug Use History: Marijuana Additional History: She has been a since 2006 and is retired. - Past Family History Mother Family Medical History: Cancer Additional Family Medical History / Comment(s): LUNG CANCER Father Family Medical History: Diabetes Mellitus Medications and Allergies Home Medications Medication Instructions Recorded Confirmed Type Multivitamin/Iron/Folic Acid 1 tab PO DAILY 07/06/18 02/22/20 History [Centrum Women Tablet] Aspirin 325 mg PO DAILY 07/09/18 02/22/20 History Allergies Allergy/AdvReac Type Severity Reaction Status Date / Time No Known Allergies Allergy Verified 02/22/20 09:03 Exam Vital Signs Temp Pulse Resp BP Pulse Ox 02/22/20 09:06 97.5 F L 69 18 164/92 96 Intake and Output 02/21/20 02/22/20 02/22/20 22:59 06:59 14:59 Other: Weight 76.657 kg Height 5 feet 3-1/2 inches, weight 169 pounds, BMI 29.5. This is a well-developed well-nourished white female who is alert and oriented times 3 in no acute distress. HEENT: Within normal limits. NECK: Supple without mass or thyromegaly. CHEST AND LUNGS: Clear to auscultation. HEART: Regular rate and rhythm. BREASTS: Are without mass or discharge. Bilateral nipple inversion is noted. The patient states they have been this way for many years. AXILLARY EXAM: Negative for adenopathy. BACK: Negative for CVA tenderness. ABDOMEN: Soft, nontender, without palpable masses. PELVIC EXAM: External genitalia appears normal with mild to moderate atrophy. Vagina appears normal with mild atrophy. There is no evidence of prolapse. Bimanual examination is negative for mass or tenderness. RECTAL EXAM: Rectovaginal exam is negative for mass or tenderness and is negative for occult blood. EXTREMITIES: Nontender. IMPRESSION: 1. 59-year-old menopausal female status post vaginal hysterectomy for benign reasons with normal gynecologic exam. 2. Elevated blood pressure. PLAN: 1. Pap smears have been discontinued. 2. Self breast awareness was discussed with the patient. 3. Screening mammogram will be done today. 4. We have discussed her elevated blood pressure. She states she checks her own blood pressure at home on a regular basis and I have recommended that she follow-up with Dr. Li for blood pressure elevations. Today's blood pressure was written down for the patient. 5. Osteoporosis prevention was discussed. I have stressed the importance of adequate calcium, vitamin D and regular exercise. Recommended amounts of calcium and vitamin D were also discussed. I have recommended bone density testing and the order slip was given to the patient for this. She will check with her PCP to determine when her last one was done. 6. I have recommended screening colonoscopy since she does not believe she had this done. She will also discuss this with her PCP. 7. She was advised to return in one year for her annual well woman exam.
--- NOTE | 2020-02-23 09:39 | MM ---
Reason for exam: screening (asymptomatic). Last mammogram was performed 1 year and 5 months ago. History: Patient is postmenopausal. Physical Findings: A clinical breast exam by your physician is recommended on an annual basis and results should be correlated with mammographic findings. MG Screening Mammo w CAD Bilateral CC and MLO view(s) were taken. Prior study comparison: September 16, 2018, bilateral MG screening mammo w CAD. May 14, 2017, bilateral MG 3d diag mammo w/cad [facility]. The breast tissue is almost entirely fat. No significant changes when compared with prior studies. ASSESSMENT: Benign, BI-RAD 2 RECOMMENDATION: Routine screening mammogram of both breasts in 1 year.
== END | disposition home or self-care (01) ==
LOC: WWCWWP 08:40
PROVIDERS: ATTEND Obstetrics & Gynecology
DX: Z12.31 Encounter for screening mammogram for malignant neoplasm of breast (principal)
CPT/HCPCS: 77067

== ENCOUNTER → 2020-04-24 | Outpatient (CLI) | payer OTHER ==
--- NOTE | 2020-04-24 12:45 | BD ---
EXAMINATION TYPE: Axial Bone Density DATE OF EXAM: 04/24/2020 COMPARISON: NONE CLINICAL HISTORY: Postmenopausal screening Height: 63.5 IN Weight: 168 LBS FRAX RISK QUESTIONS: History of Fracture in Adulthood: LT FOOT FX AGE 57 Secondary Osteoporosis: 3. Menopause before 45: PARTIAL HYST AGE 28 RISK FACTORS HISTORY OF: Active: MODERATE Postmenopausal woman: PARTIAL HYST AGE 28 MEDICATIONS: Additional Medications: VIT D, CENTRUM, BABY ASPIRIN, EXAM MEASUREMENTS: Bone mineral densitometry was performed using the Bjond System. Bone mineral density as measured about the Lumbar spine is: ----- L1-L4(G/cm2): 1.057 T Score Values are as follows: ----- L2: -1.8 ----- L3: 0.0 ----- L4: -0.7 ----- L1-L4: -2.0 Bone mineral density BASELINE Bone mineral density about the R hip (g/cm2): 0.803 Bone mineral density about the L hip (g/cm2): 0.797 T Score values are as follows: -----R Neck: -1.7 -----L Neck: -1.7 -----R Total: -1.4 -----L Total: -1.6 Bone mineral density BASELINE IMPRESSION: Osteopenia (T Score between -2.5 and -1). There is slightly increased risk of fracture and the patient may be considered for treatment. Re-Screen 2-5 years. NOTE: T-SCORE=SD OF THE YOUNG ADULT MEAN.
== END | disposition home or self-care (01) ==
LOC: RADBDWWP 10:23
PROVIDERS: ATTEND Internal Medicine
DX: M85.80 Other specified disorders of bone density and structure, unspecified site (principal)
CPT/HCPCS: 77080

== ENCOUNTER → 2020-05-26 | Outpatient (CLI) | payer OTHER ==
[2020-05-26 18:26] LABS: African American GFR (CKD) 79.4 (60.0-200.0); Anion Gap 13.2 mmol/L (4.00-12.00); BUN/Creat Ratio 11.11 Ratio (12.00-20.00); Calcium 10.4 mg/dL (8.7-10.3); Carbon Dioxide 23.8 mmol/L (21.6-31.8); Non-African American GFR(CKD) 68.5 (60.0-200.0); Potassium 4.8 mmol/L (3.5-5.5)
== END | disposition home or self-care (01) ==
LOC: LABWHC1 10:16
PROVIDERS: ATTEND Internal Medicine
DX: E87.8 Other disorders of electrolyte and fluid balance, not elsewhere classified (principal)
CPT/HCPCS: 36415; 80048

== ENCOUNTER → 2020-09-22 | Outpatient (CLI) | payer OTHER ==
[2020-09-23 04:13] LABS: ALT 23 U/L (8-44); AST 25 U/L (13-35)
[2020-09-23 05:35] LABS: Hepatitis B Core IgM Non-Reactive (Non-Reactive); Hepatitis C IgG Antibody Non-Reactive (Non-Reactive)
[2020-09-23 06:21] LABS: Hepatitis A Antibody IgM Non-Reactive (Non-Reactive); Hepatitis B Surface Antigen Non-Reactive (Non-Reactive)
== END | disposition home or self-care (01) ==
LOC: LABWHC1 11:15
PROVIDERS: ATTEND Internal Medicine
DX: K75.9 Inflammatory liver disease, unspecified (principal)
CPT/HCPCS: 36415; 80074; 84450; 84460

== ENCOUNTER 2020-10-25 10:09 | Observation (INO) | payer OTHER ==
--- NOTE | 2020-10-25 11:08 | ED ---
General Adult HPI - General Chief complaint: Vaginal Bleeding Stated complaint: vaginal bleeding Time Seen by Provider: 10/25/20 10:22 Source: patient Mode of arrival: ambulatory Limitations: no limitations - History of Present Illness Initial comments: 60-year-old female with a past medical history of hypertension, hysterectomy possibly partial presents to the emergency room for vaginal bleeding. Patient states she was having sexual intercourse for the first time in 14 years last night and started to vaginally bleed around 7 PM. Patient states she thought it would stop and been using washcloths and towels but has been soaking through these. Patient called her friend who brought her to the emergency room. Patient is not lightheaded. Patient denies using any other objects in the vagina. She denies blood thinners.Patient has no other complaints at this time including shortness of breath, chest pain, abdominal pain, nausea or vomiting, headache, or visual changes. - Related Data Allergies Allergy/AdvReac Type Severity Reaction Status Date / Time No Known Allergies Allergy Verified 10/25/20 13:43 Review of Systems ROS Statement: Those systems with pertinent positive or pertinent negative responses have been documented in the HPI. ROS Other: All systems not noted in ROS Statement are negative. 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 History of Any Multi-Drug Resistant Organisms: None Reported Past Surgical History: Hysterectomy Additional Past Surgical History / Comment(s): Vaginal hysterectomy at age 28. Past Anesthesia/Blood Transfusion Reactions: No Reported Reaction Past Psychological History: No Psychological Hx Reported Smoking Status: Never smoker Past Alcohol Use History: Occasional Past Drug Use History: Marijuana - Past Family History Mother Family Medical History: Cancer Additional Family Medical History / Comment(s): LUNG CANCER Father Family Medical History: Diabetes Mellitus General Exam Limitations: no limitations General appearance: alert, in no apparent distress Head exam: Present: atraumatic Eye exam: Present: normal appearance, PERRL, EOMI. Absent: scleral icterus, conjunctival injection ENT exam: Present: normal exam, mucous membranes moist Neck exam: Present: normal inspection, full ROM. Absent: tenderness Respiratory exam: Present: normal lung sounds bilaterally. Absent: respiratory distress, wheezes Cardiovascular Exam: Present: regular rate, normal rhythm, normal heart sounds GI/Abdominal exam: Present: soft, normal bowel sounds. Absent: distended, tenderness, guarding, rebound, rigid External exam: Present: normal external exam Speculum exam: Present: vaginal bleeding, laceration (Suspect laceration posterior fornix) Course Vital Signs 10/25/20 10/25/20 10:10 13:16 Temperature 98.6 F 98.9 F Pulse Rate 116 H 94 Respiratory 20 18 Rate Blood Pressure 136/86 121/74 O2 Sat by Pulse 97 97 Oximetry Medical Decision Making - Medical Decision Making Vitals are stable. Physical exam was performed. There is mild vaginal bleeding from a laceration noted near the vaginal cough or cervix. Patient has had a partial hysterectomy and is unsure of whether she has a cervix. CBC does show a hemoglobin of 12.9. CMP unremarkable. Dr. Cifuentes was consulted, he did see patient in the ER. Unable to do procedure with local anesthesia and we'll need to admit patient for surgery. Patient is stable at this time is only having m ild bleeding. - Lab Data Result diagrams: 10/25/20 11:28 10/25/20 11:28 Lab Results 10/25/20 10/25/20 10/25/20 Range/Units 11:25 11:28 11:28 WBC 12.1 H (3.8-10.6) k/uL RBC 3.80 (3.80-5.40) m/uL Hgb 12.9 (11.4-16.0) gm/dL Hct 38.2 (34.0-46.0) % MCV 100.4 H (80.0-100.0) fL MCH 33.8 (25.0-35.0) pg MCHC 33.7 (31.0-37.0) g/dL RDW 12.4 (11.5-15.5) % Plt Count 302 (150-450) k/uL MPV 8.3 Neutrophils % 85 % Lymphocytes % 10 % Monocytes % 4 % Eosinophils % 0 % Basophils % 0 % Neutrophils # 10.2 H (1.3-7.7) k/uL Lymphocytes # 1.2 (1.0-4.8) k/uL Monocytes # 0.5 (0-1.0) k/uL Eosinophils # 0.0 (0-0.7) k/uL Basophils # 0.0 (0-0.2) k/uL PT 10.3 (9.0-12.0) sec INR 1.0 (<1.2) APTT 22.3 (22.0-30.0) sec Sodium (137-145) mmol/L Potassium (3.5-5.1) mmol/L Chloride (98-107) mmol/L Carbon Dioxide (22-30) mmol/L Anion Gap mmol/L BUN (7-17) mg/dL Creatinine (0.52-1.04) mg/dL Est GFR (CKD-EPI)AfAm (>60 ml/min/1.73 sqM) Est GFR (CKD-EPI)NonAf (>60 ml/min/1.73 sqM) Glucose (74-99) mg/dL Calcium (8.4-10.2) mg/dL Total Bilirubin (0.2-1.3) mg/dL AST (14-36) U/L ALT (4-34) U/L Alkaline Phosphatase (38-126) U/L Total Protein (6.3-8.2) g/dL Albumin (3.5-5.0) g/dL Blood Type Recheck No Previous Record Bld Type Recheck Status CABO Indicated Spec Expiration Date 10/28/2020 - 232410/25/20 Range/Units 11:28 WBC (3.8-10.6) k/uL RBC (3.80-5.40) m/uL Hgb (11.4-16.0) gm/dL Hct (34.0-46.0) % MCV (80.0-100.0) fL MCH (25.0-35.0) pg MCHC (31.0-37.0) g/dL RDW (11.5-15.5) % Plt Count (150-450) k/uL MPV Neutrophils % % Lymphocytes % % Monocytes % % Eosinophils % % Basophils % % Neutrophils # (1.3-7.7) k/uL Lymphocytes # (1.0-4.8) k/uL Monocytes # (0-1.0) k/uL Eosinophils # (0-0.7) k/uL Basophils # (0-0.2) k/uL PT (9.0-12.0) sec INR (<1.2) APTT (22.0-30.0) sec Sodium 135 L (137-145) mmol/L Potassium 4.3 (3.5-5.1) mmol/L Chloride 104 (98-107) mmol/L Carbon Dioxide 23 (22-30) mmol/L Anion Gap 8 mmol/L BUN 11 (7-17) mg/dL Creatinine 0.55 (0.52-1.04) mg/dL Est GFR (CKD-EPI)AfAm >90 (>60 ml/min/1.73 sqM) Est GFR (CKD-EPI)NonAf >90 (>60 ml/min/1.73 sqM) Glucose 106 H (74-99) mg/dL Calcium 9.1 (8.4-10.2) mg/dL Total Bilirubin 0.3 (0.2-1.3) mg/dL AST 24 (14-36) U/L ALT 20 (4-34) U/L Alkaline Phosphatase 90 (38-126) U/L Total Protein 6.4 (6.3-8.2) g/dL Albumin 4.1 (3.5-5.0) g/dL Blood Type Recheck Bld Type Recheck Status Spec Expiration Date Disposition Clinical Impression: Vaginal laceration Disposition: ADMITTED IP TO THIS HOSP Is patient prescribed a controlled substance at d/c from ED?: No Referrals: Chan Li MD [Primary Care Provider] - 1-2 days Time of Disposition: 13:43
[2020-10-25 11:38] LABS: Basophils % (A) 0 %; Eosinophils % (A) 0 %; HCT 38.2 % (34.0-46.0); HGB 12.9 gm/dL (11.4-16.0); Lymphocytes # (A) 1.2 k/uL (1.0-4.8); Lymphocytes % (A) 10 %; MCH 33.8 pg (25.0-35.0); MCHC 33.7 g/dL (31.0-37.0); MCV 100.4 fL (80.0-100.0); Mean Platelet Volume 8.3; Monocytes # (A) 0.5 k/uL (0-1.0); Monocytes % (A) 4 %; Neutrophils # (A) 10.2 k/uL (1.3-7.7); Neutrophils % (A) 85 %; Platelet Count 302 k/uL (150-450); RDW 12.4 % (11.5-15.5); WBC 12.1 k/uL (3.8-10.6)
[2020-10-25 11:51] LABS: ALT 20 U/L (4-34); AST 24 U/L (14-36); African American GFR (CKD) >90 (>60 ml/min/1.73 sqM); Albumin 4.1 g/dL (3.5-5.0); Alkaline Phosphatase 90 U/L (38-126); Anion Gap 8 mmol/L; Blood Urea Nitrogen 11 mg/dL (7-17); Calcium 9.1 mg/dL (8.4-10.2); Carbon Dioxide 23 mmol/L (22-30); Chloride 104 mmol/L (98-107); Glucose 106 mg/dL (74-99); Non-African American GFR(CKD) >90 (>60 ml/min/1.73 sqM); Potassium 4.3 mmol/L (3.5-5.1); Sodium 135 mmol/L (137-145); Total Bilirubin 0.3 mg/dL (0.2-1.3); Total Protein 6.4 g/dL (6.3-8.2)
[2020-10-25 12:23] LABS: Partial Thromboplastin Time 22.3 sec (22.0-30.0); Prothrombin Time 10.3 sec (9.0-12.0)
--- NOTE | 2020-10-25 13:31 | P.HPOB ---
History of Present Illness H&P Date: 10/25/20 Chief Complaint: Vaginal apical laceration The patient is a 60-year-old woman who is status post abdominal hysterectomy at approximately age 28 for bleeding problems and who has been menopausal since roughly age 48 who presents to the emergency room with acute vaginal bleeding beginning last night she describes as fairly brisk with moderate amount of clots. She does report that she has not been sexually active in more than 10 years and engage in sexual activity last night after which time the bleeding began. 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 Review of Systems Review of systems is confined to history of present illness. 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 History of Any Multi-Drug Resistant Organisms: None Reported Past Surgical History: Hysterectomy Additional Past Surgical History / Comment(s): Vaginal hysterectomy at age 28. Past Anesthesia/Blood Transfusion Reactions: No Reported Reaction Past Psychological History: No Psychological Hx Reported Smoking Status: Never smoker Past Alcohol Use History: Occasional Past Drug Use History: Marijuana - Past Family History Mother Family Medical History: Cancer Additional Family Medical History / Comment(s): LUNG CANCER Father Family Medical History: Diabetes Mellitus Medications and Allergies Home Medications Medication Instructions Recorded Confirmed Type Multivitamin/Iron/Folic Acid 1 tab PO DAILY 07/06/18 02/22/20 History [Centrum Women Tablet] Aspirin 325 mg PO DAILY 07/09/18 02/22/20 History Allergies Allergy/AdvReac Type Severity Reaction Status Date / Time No Known Allergies Allergy Verified 10/25/20 10:13 Exam Vital Signs Temp Pulse Resp BP Pulse Ox 10/25/20 13:16 98.9 F 94 18 121/74 97 10/25/20 10:10 98.6 F 116 H 20 136/86 97 Intake and Output 10/24/20 10/25/20 10/25/20 22:59 06:59 14:59 Other: Weight 72.575 kg In general, this is a well-developed well-nourished white female in no acute distress. Her heart has a regular rhythm and rate without murmur. Her lungs are clear to auscultation bilaterally in all barber. Abdomen is nondistended, soft, nontender, without any apparent masses. Her extremities without any cyanosis, clubbing, or edema and are nontender to palpation bilaterally. Speculum examination demonstrates what appears to be a roughly 2 cm laceration most likely in the scar of the vaginal cuff at the apex of the vagina. It is not currently acutely bleeding but is likely to do so if it remains open. Repair in the emergency room is likely to be highly difficult given her menopausal status and lack of space as well as the depth in the vagina of the laceration. Results Result Diagrams: 10/25/20 11:28 10/25/20 11:28 Abnormal Lab Results - Last 24 Hours (Table) 10/25/20 10/25/20 Range/Units 11:28 11:28 WBC 12.1 H (3.8-10.6) k/uL MCV 100.4 H (80.0-100.0) fL Neutrophils # 10.2 H (1.3-7.7) k/uL Sodium 135 L (137-145) mmol/L Glucose 106 H (74-99) mg/dL Assessment and Plan (1) Vaginal laceration Current Visit: Yes Status: Acute Code(s): S31.41XA - LACERATION W/O FOREIGN BODY OF VAGINA AND VULVA, INIT ENCNTR SNOMED Code(s): 313934134 Plan: I have discussed with the patient that the best option for closure of the wound would be to proceed to the operating room where better exposure can be obtained. She has agreed to this. We will proceed to the operating room for closure of vaginal apical laceration. The risks and complications the procedure been explained including bleeding, bleeding, transfusion, infection, and injury to local structures. She has understood all this and agreed to proceed. We will l ikely proceed this afternoon at the end of office. Hemoglobin is stable and there is no ongoing active bleeding at this time.
[2020-10-25] MEDS ORDERED: SODIUM CHLORIDE 0.9% 1,000 ML IV STA (13:40)
[2020-10-25] MEDS ORDERED: NALOXONE 0.4 MG/ML 1 ML VIAL IV PRN (13:41)
[2020-10-25] MEDS ORDERED: IV FLUID CONTINUATION 975 ML IV ONE (15:37)
[2020-10-25] MEDS ORDERED: ONDANSETRON 4 MG/2 ML VIAL ONE (15:52)
[2020-10-25] MEDS ORDERED: DEXAMETHASONE SOD PHOS (MDV) 100 MG/10 ML VIAL IV ONE (15:53)
[2020-10-25] MEDS ORDERED: ONDANSETRON 4 MG/2 ML VIAL IVP ONE (15:54)
--- NOTE | 2020-10-25 17:26 | P.OP ---
Date of Procedure: 10/25/20 Preoperative Diagnosis: #1. Vaginal apical laceration Postoperative Diagnosis: Same Procedure(s) Performed: Repair of vaginal apical laceration Anesthesia: other (Gen. by LMA) Surgeon: Hammad Cifuentes Estimated Blood Loss (ml): 20 IV fluids (ml): 300 Urine output (ml): 50 Pathology: none sent Condition: stable Disposition: PACU Operative Findings: Exam under anesthesia confirmed the presence of a roughly 2-3 cm vaginal apical laceration almost certainly in the scar from her previous hysterectomy where the apex of the vagina was closed. Was minimal ongoing active bleeding. Following closure, there was no ongoing bleeding. Description of Procedure: The patient was prepped and draped in usual fashion after general anesthesia was administered by the anesthesiologist. A weighted speculum was placed and the bladder drained of approximately 50 mL of clear diego urine. The apical laceration was identified using an anterior blade as well. The margins were grasped with Allis clamps and the defect was closed full-thickness from angle to angle with a running locking stitch of 2-0 Vicryl. There was no ongoing bleeding after closure. Estimated blood loss for the case was approximately 20 mL. There were no complications. All sponge, instrument, needle counts were correct. The patient tolerated the procedure well and proceeded to the recovery room in stable condition.
--- NOTE | 2020-10-25 17:30 | P.DS ---
Providers Date of admission: 10/25/20 13:18 Expected date of discharge: 10/25/20 Attending physician: Hammad Cifuentes Primary care physician: Chan Li - Discharge Diagnosis(es) (1) Vaginal laceration Current Visit: Yes Status: Acute Hospital Course: The patient is a 60-year-old woman who presented to the emergency room with acute vaginal bleeding beginning after an episode of intercourse last night. She apparently not been sexually active for more than 10 years and then became sexually active again last evening after which time she had moderate to heavy bleeding overnight. She presented to the emergency room where the laceration was identified. She had a history of a hysterectomy and the laceration appeared to be in the scar where the apex of the vagina had been closed approximate 30 years ago. There is no active ongoing bleeding. She was ultimately taken to the operating room where the laceration was closed with a running locking stitch of 2-0 Vicryl from angle to angle. She was deemed stable for discharge following the procedure and was discharged home to follow-up in the office in approximately 2 weeks' time. Discharge instructions included nothing in vagina for at least 2 weeks' time and otherwise to call for any significantly increased bleeding, fever, pain, or anything else that concerned her. She understood her instructions and agrees to follow up as noted above. Discharge medications included only [id number] analgesic pain medications and any medication she may take at home. Procedures: #1. Repair of vaginal apical laceration Patient Condition at Discharge: Stable Plan - Discharge Summary New Discharge Prescriptions: No Action Alendronate Sodium [Fosamax] 70 mg PO BANEGAS Lisinopril [Prinivil] 10 mg PO DAILY Discharge Medication List Alendronate Sodium [Fosamax] 70 mg PO BANEGAS 10/25/20 [History] Lisinopril [Prinivil] 10 mg PO DAILY 10/25/20 [History] Follow up Appointment(s)/Referral(s): Chan Li MD [Primary Care Provider] - 1-2 days Hammad Cifuentes MD [STAFF PHYSICIAN] - 2 Weeks Discharge Disposition: HOME SELF-CARE
[2020-10-25] MEDS ORDERED: fentaNYL (PF) 50 MCG/ML 2 ML AMP ONE (18:40)
[2020-10-25] MEDS ORDERED: HYDROmorphone (PF) 1 MG/ML ONE (18:40)
[2020-10-25] MEDS ORDERED: MIDAZOLAM 2 MG/2 ML VIAL ONE (18:40)
[2020-10-25] MEDS ORDERED: PROPOFOL 10 MG/ML 20 ML VIAL IV ONE (18:40)
[2020-10-25] MEDS ORDERED: LIDOCAINE 1% INJ 10MG/ML (20 ML MDV) ONE (18:40)
[2020-10-25 20:30] VITALS: BP 139/71; PULSE 81; RESP 14; TEMP 97.7
== END 2020-10-25 20:00 | disposition home or self-care (01) ==
LOC: EC 10:09 → 4FBP 13:18
PROVIDERS: ADMIT Obstetrics & Gynecology; ATTEND Obstetrics & Gynecology
DX: S31.41XA Laceration without foreign body of vagina and vulva, initial encounter (principal); Z78.0 Asymptomatic menopausal state; I10 Essential (primary) hypertension; M10.9 Gout, unspecified; Z79.899 Other long term (current) drug therapy; Z90.711 Acquired absence of uterus with remaining cervical stump; Z83.3 Family history of diabetes mellitus; Z80.1 Family history of malignant neoplasm of trachea, bronchus and lung; X58.XXXA Exposure to other specified factors, initial encounter; Z79.83 Long term (current) use of bisphosphonates
CPT/HCPCS: 57200; 99284; 36415; 86900; 86901; 80053; 85025; 85610; 85730; 86850; G0378; J2250; J2405; J2001; J3010; J1170; J1100; J2704

== ENCOUNTER → 2021-03-05 | Outpatient (CLI) | payer OTHER ==
[2021-03-05 19:42] LABS: Basophils # (A) 0.04 X 10*3/uL (0.00-0.10); Basophils % (A) 0.5 %; Eosinophils # (A) 0.08 X 10*3/uL (0.04-0.35); HGB 13.8 g/dL (12.0-15.0); Lymphocytes # (A) 1.41 X 10*3/uL (0.90-5.00); Lymphocytes % (A) 17.4 %; MCH 31.9 pg (27.0-32.0); MCHC 30.7 g/dL (32.0-37.0); MCV 103.9 fL (80.0-97.0); Mean Platelet Volume 10.4 fL (9.5-12.2); Monocytes # (A) 0.61 X 10*3/uL (0.20-1.00); Monocytes % (A) 7.5 %; Neutrophils # (A) 5.94 X 10*3/uL (1.80-7.70); Neutrophils % (A) 73.2 %; Platelet Count 302 X 10*3/uL (140-440); RBC 4.33 X 10*6/uL (4.10-5.20); RDW 13.2 % (11.5-14.5); WBC 8.11 X 10*3/uL (4.50-10.00)
[2021-03-05 21:50] LABS: ALT 20 U/L (8-44); AST 19 U/L (13-35); African American GFR (CKD) 104.2 (60.0-200.0); Albumin 4.4 g/dL (3.8-4.9); Albumin/Globulin Ratio 1.98 (1.60-3.17); Alkaline Phosphatase 74 U/L (41-126); BUN/Creat Ratio 14.88 Ratio (12.00-20.00); Blood Urea Nitrogen 10.7 mg/dL (9.0-27.0); Calcium 9.5 mg/dL (8.7-10.3); Chloride 107 mmol/L (96-109); Globulin 2.2 g/dL (1.6-3.3); Glucose 108 mg/dL (70-110); LDL Cholesterol,Calculated 114.1 mg/dL (0.0-131.0); Non-African American GFR(CKD) 89.9 (60.0-200.0); Phosphorus 2.7 mg/dL (2.4-5.1); Potassium 5.3 mmol/L (3.5-5.5); Sodium 143 mmol/L (135-145); Total Protein 6.6 g/dL (6.2-8.2); Uric Acid 7.6 mg/dL (2.9-7.7)
== END | disposition home or self-care (01) ==
LOC: LABWHC1 03-02 11:45
PROVIDERS: ATTEND Internal Medicine
DX: Z00.00 Encounter for general adult medical examination without abnormal findings (principal); D64.9 Anemia, unspecified; M10.9 Gout, unspecified; E78.5 Hyperlipidemia, unspecified; E55.9 Vitamin D deficiency, unspecified
CPT/HCPCS: 36415; 80053; 80061; 82272; 82306; 83735; 84100; 84550; 85025

== ENCOUNTER → 2021-05-08 | Outpatient (CLI) | payer OTHER ==
--- NOTE | 2021-05-10 10:57 | MM ---
Reason for exam: screening (asymptomatic). Last mammogram was performed 1 year and 2 months ago. History: Patient is postmenopausal. Physical Findings: A clinical breast exam by your physician is recommended on an annual basis and results should be correlated with mammographic findings. MG 3D Screening Mammo W/Cad Bilateral CC and MLO view(s) were taken. Prior study comparison: February 22, 2020, bilateral MG screening mammo w CAD. September 16, 2018, bilateral MG screening mammo w CAD. There are scattered fibroglandular densities. No significant changes when compared with prior studies. ASSESSMENT: Benign, BI-RAD 2 RECOMMENDATION: Routine screening mammogram of both breasts in 1 year.
== END | disposition home or self-care (01) ==
LOC: RADMAMWWP 14:19
PROVIDERS: ATTEND Internal Medicine
DX: Z12.31 Encounter for screening mammogram for malignant neoplasm of breast (principal); Z78.0 Asymptomatic menopausal state
CPT/HCPCS: 77063; 77067

== ENCOUNTER → 2021-05-11 | Outpatient (CLI) | payer OTHER ==
--- NOTE | 2021-05-11 11:49 | XR ---
EXAMINATION TYPE: XR chest 2V DATE OF EXAM: 05/11/2021 COMPARISON: 06/19/2018 HISTORY: Shortness of breath TECHNIQUE: Frontal and lateral views of the chest are obtained. FINDINGS: Scattered senescent parenchymal changes noted. Hyperinflation compatible with COPD. No evidence for infiltrate. No evidence for atelectasis. Heart size is stable. Mediastinal structures are stable and grossly unremarkable. No evidence for hilar prominence. Degenerative changes dorsal spine. IMPRESSION: 1. No evidence for acute pulmonary disease.
[2021-05-11 14:56] LABS: Basophils # (A) 0.02 X 10*3/uL (0.00-0.10); Basophils % (A) 0.3 %; Eosinophils # (A) 0.07 X 10*3/uL (0.04-0.35); Eosinophils % (A) 0.9 %; HCT 44.2 % (37.2-46.3); HGB 14.7 g/dL (12.0-15.0); Immature Grans, Automated 0.3 %; Lymphocytes # (A) 1.68 X 10*3/uL (0.90-5.00); Lymphocytes % (A) 21.2 %; MCH 32.7 pg (27.0-32.0); MCHC 33.3 g/dL (32.0-37.0); MCV 98.4 fL (80.0-97.0); Monocytes % (A) 7.6 %; NRBC Per 100 WBC 0 /100 WBCS (0.0-0.0); Neutrophils # (A) 5.52 X 10*3/uL (1.80-7.70); Neutrophils % (A) 69.7 %; Platelet Count 317 X 10*3/uL (140-440); RBC 4.49 X 10*6/uL (4.10-5.20); RDW 11.7 % (11.5-14.5); WBC 7.91 X 10*3/uL (4.50-10.00)
[2021-05-11 15:57] LABS: African American GFR (CKD) 106.3 (60.0-200.0); Anion Gap 14.8 mmol/L (10.00-18.00); BUN/Creat Ratio 15.56 Ratio (12.00-20.00); C Reactive Protein 3.8 mg/dL (0.00-0.80); Calcium 10.3 mg/dL (8.7-10.3); Carbon Dioxide 22.1 mmol/L (20.0-27.5); Non-African American GFR(CKD) 91.8 (60.0-200.0); Potassium 4.6 mmol/L (3.5-5.5)
== END | disposition home or self-care (01) ==
LOC: LABWHC1 10:54
PROVIDERS: ATTEND Internal Medicine
DX: I10 Essential (primary) hypertension (principal); R05.9 Cough, unspecified; R06.00 Dyspnea, unspecified
CPT/HCPCS: 36415; 71046; 80048; 84484; 85025; 86140

== ENCOUNTER → 2021-05-22 | Outpatient (CLI) | payer OTHER ==
[2021-05-22 13:44] VITALS: BP 133/87; PULSE 65; RESP 18; TEMP 98.2
--- NOTE | 2021-05-22 14:44 | P.HPOB ---
History of Present Illness H&P Date: 05/22/21 Chief Complaint: The patient is here for her routine gynecologic exam. This is a 60-year-old 012 with an LMP of 1988. The patient is status post vaginal hysterectomy for benign reasons. The patient had a vaginal laceration with sexual intercourse in October 2020. She had significant vaginal bleeding and had laceration repaired by Dr. Cifuentes. She was prescribed estrogen vaginal cream. She states she currently is not seeing anybody at this time and is not planning on being sexually active in the immediate future. She is without gynecologic complaints. Review of Systems The patient has lost 6 pounds over the last year. She denies respiratory, cardiac, or G.I. problems. 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 History of Any Multi-Drug Resistant Organisms: None Reported Past Surgical History: Hysterectomy Additional Past Surgical History / Comment(s): Vaginal hysterectomy at age 28. Vaginal laceration repair 2020. Colonoscopy 2019 per patient. Past Anesthesia/Blood Transfusion Reactions: No Reported Reaction Past Psychological History: No Psychological Hx Reported Smoking Status: Never smoker Past Alcohol Use History: Daily (1-2 per day) Past Drug Use History: Marijuana Additional History: She has been a since 2006 and is currently not seeing anybody at this time. She is retired. - Past Family History Mother Family Medical History: Cancer Additional Family Medical History / Comment(s): LUNG CANCER Father Family Medical History: Diabetes Mellitus Medications and Allergies Home Medications Medication Instructions Recorded Confirmed Type Alendronate Sodium [Fosamax] 70 mg PO BANEGAS 10/25/20 05/22/21 History Calcium Carbonate/Vitamin D3 500 mg PO DAILY 05/22/21 05/22/21 History [Calcium 500-Vit D3 15 Mcg (600 Iu)] Multivit-Min/Iron/Folic/Lutein 1 tablet PO DAILY 05/22/21 05/22/21 History [Centrum Silver Women Tablet] amLODIPine [Norvasc] 2.5 mg PO DAILY 05/22/21 05/22/21 History Allergies Allergy/AdvReac Type Severity Reaction Status Date / Time No Known Allergies Allergy Verified 05/22/21 13:34 Exam Vital Signs Temp Pulse Resp BP Pulse Ox 05/22/21 13:41 98.2 F 65 18 133/87 99 Intake and Output 05/21/21 05/22/21 05/22/21 22:59 06:59 14:59 Other: Weight 73.936 kg Height 5 feet 4 3/4 inches, weight 163 pounds, BMI 27.3. This is a well-developed well-nourished white female who is alert and oriented times 3 in no acute distress. HEENT: Within normal limits. NECK: Supple without mass or thyromegaly. CHEST AND LUNGS: Clear to auscultation. HEART: Regular rate and rhythm. BREASTS: Are without mass or discharge. There is bilateral nipple inversion which the patient states she has had for many years. AXILLARY EXAM: Negative for adenopathy. BACK: Negative for CVA tenderness. ABDOMEN: Soft, nontender, without palpable masses. PELVIC EXAM: External genitalia appears normal with mild to moderate atrophy. Vagina appears normal with mild to moderate atrophy. There is no evidence of prolapse. Bimanual examination is negative for mass or tenderness. RECTAL EXAM: Rectovaginal exam is negative for mass or tenderness and is negative for occult blood. EXTREMITIES: Nontender. IMPRESSION: 1. 60-year-old menopausal female who is status post vaginal hysterectomy for benign reasons with normal gynecologic exam. 2. Previous vaginal laceration with sexual intercourse in October 2020. This appears well healed. PLAN: 1. Pap smears have been discontinued. 2. Self breast awareness was discussed with the patient. We have also discussed symptoms associated with inflammatory breast cancer. 3. Screening mammogram was done on 05/10/2021 and was benign. 4. Osteoporosis prevention was discussed. I have stressed the importance of ad equate calcium, vitamin D and regular exercise. Recommended amounts of calcium and vitamin D were also discussed. Bone density on 04/24/2020 showing osteopenia. We will plan on repeating bone density testing in 1 year. 5. She has completed her Covid vaccination series and has received her booster. 6. She will continue to use estrogen vaginal cream as prescribed by Dr. Cifuentes. She states she does not need another prescription for this at this time. 7. She was advised to return in one year for her annual well woman exam.
== END ==
LOC: WWCWWP 12:59
PROVIDERS: ATTEND Obstetrics & Gynecology
DX: Z01.419 Encounter for gynecological examination (general) (routine) without abnormal findings (principal); Z78.0 Asymptomatic menopausal state; I10 Essential (primary) hypertension; Z90.710 Acquired absence of both cervix and uterus

== ENCOUNTER → 2022-03-04 | Outpatient (CLI) | payer OTHER ==
[2022-03-04 14:32] LABS: Basophils # (A) 0.02 X 10*3/uL (0.00-0.10); Basophils % (A) 0.3 %; Eosinophils # (A) 0.18 X 10*3/uL (0.04-0.35); Eosinophils % (A) 2.7 %; HCT 45.4 % (37.2-46.3); HGB 15.2 g/dL (12.0-15.0); Immature Grans, Automated 0.3 %; Lymphocytes # (A) 1.43 X 10*3/uL (0.90-5.00); Lymphocytes % (A) 21.8 %; MCHC 33.5 g/dL (32.0-37.0); MCV 98.5 fL (80.0-97.0); Mean Platelet Volume 10.1 fL (9.5-12.2); Monocytes # (A) 0.47 X 10*3/uL (0.20-1.00); Monocytes % (A) 7.2 %; NRBC Per 100 WBC 0 /100 WBCS (0.0-0.0); Neutrophils # (A) 4.43 X 10*3/uL (1.80-7.70); Neutrophils % (A) 67.7 %; Platelet Count 291 X 10*3/uL (140-440); RBC 4.61 X 10*6/uL (4.10-5.20); RDW 11.9 % (11.5-14.5); WBC 6.55 X 10*3/uL (4.50-10.00)
[2022-03-04 14:48] LABS: Chol/HDL Ratio 4.11 Ratio; LDL Cholesterol,Calculated 157.7 mg/dL (0.0-131.0)
[2022-03-04 14:54] LABS: Erythrocyte Sedimentation Rate 7 mm/Hr (0-30)
[2022-03-04 15:32] LABS: ALT 22 U/L (8-44); AST 21 U/L (13-35); African American GFR (CKD) 112.4 (60.0-200.0); Albumin 4.7 g/dL (3.8-4.9); Albumin/Globulin Ratio 1.81 (1.60-3.17); Alkaline Phosphatase 85 U/L (41-126); BUN/Creat Ratio 14.83 Ratio (12.00-20.00); Blood Urea Nitrogen 8.9 mg/dL (9.0-27.0); Calcium 10.3 mg/dL (8.7-10.3); Chloride 106 mmol/L (96-109); Creatine Kinase 53 U/L (26-186); Globulin 2.6 g/dL (1.6-3.3); Glucose 110 mg/dL (70-110); Magnesium 1.9 mg/dL (1.5-2.4); Phosphorus 3.8 mg/dL (2.4-5.1); Potassium 5.5 mmol/L (3.5-5.5); Sodium 144 mmol/L (135-145); Total Protein 7.3 g/dL (6.2-8.2); Uric Acid 6.6 mg/dL (2.9-7.7)
== END | disposition home or self-care (01) ==
LOC: LABWHC1 09:35
PROVIDERS: ATTEND Internal Medicine
DX: Z00.00 Encounter for general adult medical examination without abnormal findings (principal); I10 Essential (primary) hypertension; E87.6 Hypokalemia; E87.8 Other disorders of electrolyte and fluid balance, not elsewhere classified; E78.5 Hyperlipidemia, unspecified
CPT/HCPCS: 36415; 80053; 80061; 82550; 83735; 84100; 84443; 84550; 85025; 85652; 86140

== ENCOUNTER → 2022-07-02 | Outpatient (CLI) | payer OTHER ==
--- NOTE | 2022-07-02 11:14 | CA ---
Stress Echo Report Lisbet Reynaga Age: 62 Gender: F : 1960 Exam Date: 07/02/2022 10:24 Exam Location: [facility] Ht (in): 64 Wt (lb): 167 Ordering Physician: Chan Li MD Referring Physician: MAL,, Supervisor Frame Sample And Pattern: Andreia Gonzales RDCS Technologist Procedure CPT: Indication: R94.31 ICD-9 Codes: Rhythm: Patient History: Hypertension, Atypical angina Cardiac Medications: Medications in past 24 hours: Contrast: Stress Results Protocol: Claudy Total dose(mL): Exercise Duration (min:sec): 6:[address] Depression (mm): Angina Score: Koenig Score: METS: 7.3 Resting HR: 92 Resting BP: 153 / 92 Peak HR: 137 Peak BP: 208 / 107 Max Predicted HR: 156 88 % Max Predicted HR Target HR: 133 Double Product: [id number] Stress Summary: The patient's target heart rate was achieved BP Response: Normal Reason for Termination: Reached target heart rate or work-load Cardiac Symptoms: Test terminated after reaching target heart rate (85% max predicted) ECG Analysis Resting ECG: Normal sinus rhythm normal axis normal intervals Stress ECG: Patient exercised on Claudy protocol for 6 minutes achieving 7 mets 85% of predicted maximal heart rate without chest pain or diagnostic ST segment depression Arrhythmia: Echo Analysis Resting Echo: Technically suboptimal study secondary to poor echo windows and off axis images Normal left ventricular size wall motion systolic function Peak Echo Analysis: There is normal hyperdynamic response of all segments of myocardium noted MEASUREMENTS (Male/Female) Normal Values CONCLUSIONS Average exercise tolerance Negative stress test by EKG criteria Technically suboptimal stress echo without any evidence of exercise induced wall motion abnormalities Dr. Jimi Contreras MD (Electronically Signed) Final Date: 02 July 2022 11:13
== END | disposition home or self-care (01) ==
LOC: RADNMMAIN 10:04
PROVIDERS: ATTEND Internal Medicine
DX: I10 Essential (primary) hypertension (principal); I20.8 Other forms of angina pectoris; R94.31 Abnormal electrocardiogram [ECG] [EKG]
CPT/HCPCS: 93351

== ENCOUNTER → 2022-07-10 | Outpatient (CLI) | payer OTHER ==
--- NOTE | 2022-07-11 19:27 | BD ---
EXAMINATION TYPE: Axial Bone Density DATE OF EXAM: 07/10/2022 CLINICAL HISTORY: 62 years old Female. ICD-10 CODE: Z78.0 ASYMPTOMATIC MENOPAUSAL STATE Height: 63.5 in Weight: 167 lbs FRAX RISK QUESTIONS: Secondary Osteoporosis: 3. Menopause before 45: partial hysterectomy age 28 RISK FACTORS HISTORY OF: Active: yes Postmenopausal woman: partial hysterectomy age 28 MEDICATIONS: Osteoporosis Medications: yes Which medication: Other How Lon years Additional Medications: alendronate sodium, calcium, vit d, atorvastatin, losartan, low dose aspirin, amlodipine, EXAM MEASUREMENTS: Bone mineral densitometry was performed using the [employer] System. Bone mineral density as measured about the Lumbar spine is: ----- L1-L4(G/cm2): 1.112 T Score Values are as follows: ----- L1: -0.4 ----- L2: -1.3 ----- L3: -0.5 ----- L4: -0.3 ----- L1-L4: -0.6 Z Score Values are as follows: ----- L1: 0.7 ----- L2: -0.2 ----- L3: 0.7 ----- L4: 0.9 ----- L1-L4: 0.6 Bone mineral density has: Increased 5.2% since study of: 04/24/2020 Bone mineral density about the R hip (g/cm2): 0.863 Bone mineral density about the L hip (g/cm2): 0.810 T Score values are as follows: -----R Neck: -1.7 -----L Neck: -1.4 -----R Total: -1.1 -----L Total: -1.6 Z Score values are as follows: -----R Neck: -0.5 -----L Neck: -0.2 -----R Total: -0.3 -----L Total: -0.7 Bone mineral density has: Increased 1.8% since study of: 04/24/2020 FRAX%s: The graph provided illustrates a 15.2% chance for a major osteoporotic fx and a 1.8% chance f or the hips probability for fx in 10 years time. IMPRESSION: Osteopenia (T Score between -2.5 and -1). There is slightly increased risk of fracture and the patient may be considered for treatment. Re-Screen 2-5 years. NOTE: T-SCORE=SD OF THE YOUNG ADULT MEAN.
== END | disposition home or self-care (01) ==
LOC: RADBDWWP 11:08
PROVIDERS: ATTEND Obstetrics & Gynecology
DX: M85.89 Other specified disorders of bone density and structure, multiple sites (principal); Z78.0 Asymptomatic menopausal state
CPT/HCPCS: 77080

== ENCOUNTER 2022-09-11 22:09 | Emergency (ER) | payer OTHER ==
[2022-09-12] MEDS ORDERED: KETOROLAC 15 MG/ML 1 ML VIAL IVP STA (00:53)
[2022-09-12 01:42] LABS: Basophils % (A) 0 %; Eosinophils # (A) 0.2 k/uL (0-0.7); Eosinophils % (A) 2 %; HCT 37.1 % (34.0-46.0); HGB 12.6 gm/dL (11.4-16.0); Lymphocytes # (A) 1.5 k/uL (1.0-4.8); Lymphocytes % (A) 23 %; MCH 33.8 pg (25.0-35.0); MCHC 33.9 g/dL (31.0-37.0); MCV 99.6 fL (80.0-100.0); Mean Platelet Volume 7.2; Monocytes # (A) 0.4 k/uL (0-1.0); Monocytes % (A) 6 %; Neutrophils # (A) 4.2 k/uL (1.3-7.7); Neutrophils % (A) 67 %; Platelet Count 382 k/uL (150-450); RBC 3.72 m/uL (3.80-5.40); RDW 12.7 % (11.5-15.5); WBC 6.3 k/uL (3.8-10.6)
[2022-09-12 01:53] LABS: ALT 24 U/L (4-34); AST 29 U/L (14-36); African American GFR (CKD) >90 (>60 ml/min/1.73 sqM); Albumin 4.2 g/dL (3.5-5.0); Alkaline Phosphatase 77 U/L (38-126); Anion Gap 8 mmol/L; Blood Urea Nitrogen 8 mg/dL (7-17); Calcium 9.5 mg/dL (8.4-10.2); Carbon Dioxide 25 mmol/L (22-30); Chloride 106 mmol/L (98-107); Glucose 95 mg/dL (74-99); Non-African American GFR(CKD) >90 (>60 ml/min/1.73 sqM); Potassium 3.8 mmol/L (3.5-5.1); Sodium 139 mmol/L (137-145); Total Bilirubin 0.6 mg/dL (0.2-1.3); Total Protein 6.9 g/dL (6.3-8.2)
[2022-09-12 01:57] LABS: INR 0.9 (<1.2); Partial Thromboplastin Time 23.2 sec (22.0-30.0); Prothrombin Time 9.7 sec (9.0-12.0)
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
--- NOTE | 2022-09-12 03:04 | CT ---
EXAM: CT Abdomen and Pelvis With Intravenous Contrast CLINICAL HISTORY: CT Reason: swelling to the L side abdominal wall TECHNIQUE: Axial computed tomography images of the abdomen and pelvis with intravenous contrast. CTDI is 21.4 mGy and DLP is 1146.4 mGy-cm. This CT exam was performed using one or more of the following dose reduction techniques: automated exposure control, adjustment of the mA and/or kV according to patient size, and/or use of iterative reconstruction technique. COMPARISON: No relevant prior studies available. FINDINGS: Lung bases: Unremarkable. No mass. No consolidation. ABDOMEN: Liver: Unremarkable. No mass. Gallbladder and bile ducts: Unremarkable. No calcified stones. No ductal dilation. Pancreas: Unremarkable. No mass. No ductal dilation. Spleen: Unremarkable. No splenomegaly. Adrenals: Unremarkable. No mass. Kidneys and ureters: Unremarkable. No solid mass. No hydronephrosis. Stomach and bowel: Unremarkable. No obstruction. No mucosal thickening. PELVIS: Appendix: The appendix is normal. Bowel loops are nondilated. No acute inflammatory changes are seen involving the bowel. Bladder: Unremarkable. No mass. Reproductive: Unremarkable as visualized. ABDOMEN and PELVIS: Intraperitoneal space: The uterus has been removed. No free fluid is seen in the pelvis. No free air. Bones/joints: Mild degenerative changes throughout the spine. No acute fracture or subluxation is seen. Soft tissues: There is a heterogenous mildly hyperdense oval fluid collection on the peripheral aspect of the left anterior abdominal wall musculature measuring approximately 12.7 x 4.4 x 8.5 cm consistent with hematoma. Vasculature: Unremarkable. No abdominal aortic aneurysm. Lymph nodes: Unremarkable. No enlarged lymph nodes. IMPRESSION: 1. There is a heterogenous mildly hyperdense oval fluid collection on the peripheral aspect of the left anterior abdominal wall musculature measuring approximately 12.7 x 4.4 x 8.5 cm consistent with hematoma. 2. The appendix is normal. Bowel loops are nondilated. No acute inflammatory changes are seen involving the bowel. <MYCVCSECTION> Communications: 09/12/22 03:07 Call Doctor Regarding Above results, called Dr. Harden on 09/12 03:07 (-04:00)
[2022-09-12 04:12] VITALS: BP 118/82; PULSE 72; RESP 16
== END 2022-09-12 03:53 | disposition home or self-care (01) ==
LOC: EC 22:09
DX: S30.1XXA Contusion of abdominal wall, initial encounter (principal); I10 Essential (primary) hypertension; F12.90 Cannabis use, unspecified, uncomplicated; Z79.82 Long term (current) use of aspirin; Z79.899 Other long term (current) drug therapy; V18.0XXA Pedal cycle driver injured in noncollision transport accident in nontraffic accident, initial encounter
CPT/HCPCS: 36415; 80053; 85025; 85610; 85730; 74177; 99284; 96374; J1885; Q9967

== ENCOUNTER → 2023-04-07 | Outpatient (CLI) | payer OTHER ==
[2023-04-07 15:00] LABS: Basophils # (A) 0.02 X 10*3/uL (0.00-0.10); Basophils % (A) 0.3 %; Eosinophils # (A) 0.16 X 10*3/uL (0.04-0.35); Eosinophils % (A) 2.2 %; HCT 45.3 % (37.2-46.3); HGB 14.9 g/dL (12.0-15.0); MCH 32.4 pg (27.0-32.0); MCHC 32.9 g/dL (32.0-37.0); MCV 98.5 FL (80.0-97.0); Mean Platelet Volume 11.1 FL (9.5-12.2); Monocytes # (A) 0.45 X 10*3/uL (0.20-1.00); Monocytes % (A) 6.1 %; NRBC Per 100 WBC 0 X 10*3/uL (0.00-0.01); Neutrophils # (A) 5.33 X 10*3/uL (1.80-7.70); Neutrophils % (A) 72.1 %; Platelet Count 291 X 10*3/uL (140-440); RDW 11.9 % (11.5-14.5); WBC 7.38 X 10*3/uL (4.50-10.00)
[2023-04-07 15:24] LABS: % Iron Saturation 36.69 (12.00-45.00); ALT 34 U/L (8-44); AST 29 U/L (13-35); Albumin 4.6 g/dL (3.8-4.9); Albumin/Globulin Ratio 1.92 Ratio (1.60-3.17); Alkaline Phosphatase 88 U/L (41-126); BUN/Creat Ratio 9.38 Ratio (12.00-20.00); Blood Urea Nitrogen 7.5 mg/dL (9.0-27.0); C Reactive Protein <0.30 mg/dL (0.00-0.80); Calcium 10.2 mg/dL (8.7-10.3); Chloride 106 mmol/L (96-109); Chol/HDL Ratio 2.07 Ratio; Creatine Kinase 66 U/L (26-186); Ferritin 66.6 ng/mL (10.0-291.0); Globulin 2.4 g/dL (1.6-3.3); Glucose 111 mg/dL (70-110); Iron 153 UG/DL (50-170); LDL Cholesterol,Calculated 57.8 mg/dL (0.0-131.0); Magnesium 2.1 mg/dL (1.5-2.4); Phosphorus 2.8 mg/dL (2.4-5.1); Potassium 4.7 mmol/L (3.5-5.5); Sodium 142 mmol/L (135-145); Total Bilirubin 0.5 mg/dL (0.3-1.2); Total Iron Binding Capacity 417 UG/DL (228-460)
[2023-04-07 15:51] LABS: Erythrocyte Sedimentation Rate 2 mm/Hr (0-30)
== END | disposition home or self-care (01) ==
LOC: LABWHC1 09:53
PROVIDERS: ATTEND Internal Medicine
DX: Z00.00 Encounter for general adult medical examination without abnormal findings (principal); D64.9 Anemia, unspecified; I10 Essential (primary) hypertension; M10.9 Gout, unspecified; E78.5 Hyperlipidemia, unspecified; E03.9 Hypothyroidism, unspecified; E55.9 Vitamin D deficiency, unspecified
CPT/HCPCS: 36415; 80053; 80061; 82306; 82550; 82728; 83540; 83550; 83735; 84100; 84443; 84550; 85025; 85652; 86140

== ENCOUNTER 2023-10-12 07:36 | Emergency (ER) | payer MEDICARE, OTHER ==
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
[2023-10-12] MEDS: MORPHINE SULFATE 4 MG/ML SYRINGE IVP STA (08:22)
[2023-10-12] MEDS: KETOROLAC 15 MG/ML 1 ML VIAL IVP STA (08:23)
--- NOTE | 2023-10-12 08:41 | XR ---
Right ankle HISTORY: Pain following trauma COMPARISON: None TECHNIQUE: 3 views right ankle were obtained. Pains: There is a trimalleolar fracture with a oblique fracture of the distal right fibula above the level o f the tibial plafond. There is an avulsion fracture of the distal medial malleolus. There is a small fracture the posterior malleolus less than 25% of the articular surface. There is a plantar calcaneal spur. There is mild soft tissue swelling. IMPRESSION: Trimalleolar fracture of the right ankle as described above.
--- NOTE | 2023-10-12 08:42 | XR ---
Right tibia and fibula. HISTORY: Pain findings: COMPARISON: None TECHNIQUE: 4 views of the right tibia and fibula were obtained. FINDINGS: There is a trimalleolar fracture of the right ankle. The proximal and mid right tibia and fibula are intact without fracture or focal intraosseous abnormality. IMPRESSION: 1. Trimalleolar fracture of the right ankle. 2. intact mid and proximal right tibia and fibula.
[2023-10-12] MEDS: SODIUM CHLORIDE 0.9% 1,000 ML IV STA (10:02)
[2023-10-12] MEDS: HYDROmorphone 1 MG/ML 1 ML SYRINGE IVP STA (10:03)
[2023-10-12] MEDS: PROPOFOL 10 MG/ML 20 ML VIAL IV ONE (12:29)
--- NOTE | 2023-10-12 12:53 | XR ---
Right ankle HISTORY: Status post right ankle fracture reduction COMPARISON: 10/12/2023 prior reduction film. TECHNIQUE: 2 views of the right ankle were obtained. There is a plaster cast over the right ankle. Trimalleolar fracture is again seen. There is near-marlene omic alignment of the ankle mortise. IMPRESSION: Post reduction right ankle fractures as described
[2023-10-12 14:08] VITALS: RESP 16
[2023-10-12 15:25] VITALS: BP 127/86; PULSE 68; TEMP 97.9
== END 2023-10-12 16:00 | disposition home or self-care (01) ==
LOC: EC 07:36
DX: S82.851A Displaced trimalleolar fracture of right lower leg, initial encounter for closed fracture (principal); V28.49XA Other motorcycle driver injured in noncollision transport accident in traffic accident, initial encounter; Y92.410 Unspecified street and highway as the place of occurrence of the external cause; Y93.55 Activity, bike riding
CPT/HCPCS: 73590; 73600; 73610; 27818; 99284; 96374; 96375 ×2; 96361 ×2; J2270; J1170; J1885; J2704

== ENCOUNTER → 2023-10-16 | Outpatient (CLI) | payer MEDICARE ==
--- NOTE | 2023-10-16 15:44 | CT ---
EXAMINATION TYPE: CT ankle RT wo con DATE OF EXAM: 10/16/2023 COMPARISON: Radiograph 10/12/2023 HISTORY: 63-year-old female S82.851A, trauma/ fx TECHNIQUE: Contiguous axial scanning of the right ankle without IV contrast. Coronal and sagittal rec onstructions performed. 3-D reconstructions generated on a dedicated independent workstation. CT DLP: 187.1 mGycm Automated exposure control for dose reduction was used. FINDINGS: Unstable trimalleolar ankle fractures. Generalized soft tissue swelling. The posterior malleolar fracture fragment measures 5.2 cm craniocaudal by 2.1 cm AP by 3.5 cm wide an d extends into the fibular groove. There is impaction resulting in proximal displacement of the fract ure fragment by 8 mm disrupting the articular surface along with 4 mm of separation. Comminution and regional displacement of the anterior inferior tibial tubercle. Transverse fracture medial malleolus minimally by 4 mm. Comminuted fracture distal shaft of the fibular with 8 mm of impaction, 6 mm posterior displacement, and mild anterior apex angulation. Eccentric narrowing of medial tibiotalar joint space and posterior subluxation at the tibiotalar join t. Subtalar joint align. Lobulation to the Achilles tendon. Moderate plantar heel spur. Mild degenerativ e change fourth and fifth TMT joints. IMPRESSION: 1. UNSTABLE TRIMALLEOLAR ANKLE FRACTURES WITH LARGE POSTERIOR MALLEOLAR FRACTURE FRAGMENT IMPACTED BY 7 MM DISRUPTING THE TIBIOTALAR JOINT ARTICULAR SURFACE. POSTERIOR SUBLUXATION AT THE TIBIOTALAR JOIN T AND ECCENTRIC MEDIAL JOINT SPACE NARROWING. 2. THE INJURIES ARE ACCOMPANIED BY A COMMINUTED AVULSION FRACTURE AT THE ANTERIOR-INFERIOR TIBIAL TUB ERCLE.
== END | disposition home or self-care (01) ==
LOC: RADCTMAIN 14:46
PROVIDERS: ATTEND Orthopaedic Surgery
DX: S82.851A Displaced trimalleolar fracture of right lower leg, initial encounter for closed fracture (principal); S82.891A Other fracture of right lower leg, initial encounter for closed fracture; S83.121A Posterior subluxation of proximal end of tibia, right knee, initial encounter

== ENCOUNTER 2023-10-24 07:00 | Day surgery (SDC) | payer MEDICARE ==
[2023-10-24] MEDS ORDERED: MIDAZOLAM 2 MG/2 ML VIAL ONE ×2 (08:30→09:53)
[2023-10-24] MEDS ORDERED: ONDANSETRON 4 MG/2 ML VIAL ONE (08:30)
[2023-10-24] MEDS ORDERED: LACTATED RINGERS 1,000 ML BAG ONE (08:30)
[2023-10-24] MEDS ORDERED: DEXAMETHASONE SOD PHOSPHATE 4 MG/ML 1 ML VIAL ONE ×2 (08:30→09:53)
[2023-10-24] MEDS ORDERED: SODIUM CHLORIDE 0.9% 50 ML BAG ONE (08:30)
[2023-10-24] MEDS ORDERED: fentaNYL (PF) 50 MCG/ML 2 ML AMP ONE ×2 (08:30→09:53)
[2023-10-24] MEDS ORDERED: ceFAZolin 1,000 MG VIAL ONE ×2 (08:30)
[2023-10-24] MEDS ORDERED: SODIUM CHLORIDE 0.9% 1,000 ML BAG ONE (08:30)
[2023-10-24] MEDS ORDERED: LIDOCAINE 1% INJ 10MG/ML (20 ML MDV) ONE (09:53)
[2023-10-24] MEDS ORDERED: NEOSTIGMINE 1 MG/ML 10 ML VIAL ONE (09:53)
[2023-10-24] MEDS ORDERED: SUCCINYLCHOLINE CHLORIDE 200 MG/10 ML VIAL IV ONE (09:53)
[2023-10-24] MEDS ORDERED: PROPOFOL 10 MG/ML 20 ML VIAL IV ONE (09:53)
[2023-10-24] MEDS ORDERED: GLYCOPYRROLATE 0.2 MG/ML 2 ML VIAL ONE (09:53)
[2023-10-24] MEDS ORDERED: ROPIVACAINE 5 MG/ML 30 ML VIAL ONE (09:53)
[2023-10-24] MEDS ORDERED: ePHEDrine 50 MG/ML 1 ML VIAL ONE (09:53)
[2023-10-24] MEDS ORDERED: HYDROmorphone (PF) 1 MG/ML ONE (09:53)
[2023-10-24] MEDS ORDERED: ROCURONIUM 10 MG/ML (5 ML VIAL) IV ONE (09:53)
[2023-10-24] MEDS ORDERED: WATER FOR INJECTION, STERILE 10 ML VIAL IV ONE (09:53)
[2023-10-24] MEDS ORDERED: SODIUM CHLORIDE 0.9% (PF) 10 ML VIAL ONE (09:53)
[2023-10-24] MEDS ORDERED: PHENYLEPHRINE-0.9% NACL SYG 1,000 MCG/10 ML SYRINGE ONE (09:53)
--- NOTE | 2023-11-07 15:51 | OP ---
OPERATIVE REPORT DATE OF SERVICE : 10/24/2023 PREOPERATIVE DIAGNOSIS: Displaced trimalleolar fracture, right ankle. POSTOPERATIVE DIAGNOSIS: Displaced trimalleolar fracture, right ankle. PROCEDURE: Open reduction with internal fixation, right trimalleolar ankle fracture. ANESTHESIA: General with preoperative nerve block. HEMOSTASIS: Right thigh tourniquet at 250 mmHg. ESTIMATED BLOOD LOSS: 30 mL. MATERIALS: [employer] posterior malleolar plate, Jensen 1/3 tubular plate, and associated screws. INJECTABLES: None. SPECIMENS: None. COMPLICATIONS: None. DESCRIPTION OF PROCEDURE: Prior to the patient being brought to the operating room, Anesthesia administered a nerve block on the right lower extremity. The patient was then placed under general anesthetic on the transfer table, then rolled onto the prone position on the operating room table. At that point, time-out was taken to confirm correct patient identifiers, correct laterality of surgery, and correct procedure. Once all staff in the room were in agreement with a time-out, a well-padded tourniquet was placed on the right thigh and then the right leg was prepped and draped in the usual manner. The right leg was exsanguinated and the knee was flexed and the tourniquet inflated to 250 mmHg. A posterolateral incision was made utilizing standard technique over the ankle. The incision was deepened down to the subcutaneous tissue careful to identify, avoid and retract any neurovascular structures and cauterize any bleeding vessels. Blunt dissection was carried down to the deep fascia overlying the peroneal muscle belly as well as the flexor hallucis longus muscle. The septa between the muscle bellies were incised so that the muscles could be reflected medially and laterally. The peroneal tendons were carefully reflected from the posterior aspect of the lateral malleolus to expose the fracture and then deep tissue dissection was done to expose the posterior aspect of the distal tibia. The posterior tibial fracture was then freed and mobilized so that it could be reduced and then the tubular fracture was reduced and brought out to length, which helped reduce the posterior tibial fracture fragment. Posterior tibial fracture fragment was distracted distally to realign. Fluoroscopy was used to assist in the reduction of the fracture. Once the fracture was reduced, 2 wires were placed across the fracture to hold it in its corrected alignment. Then, a bone clamp was used to compress the fracture. Fluoroscopy confirmed taoist of the articular surface of the tibial side of the ankle joint. The posterior malleolar plate was then positioned across the fracture. It was adjusted for position under fluoroscopy so that on the AP and lateral views, it was properly aligned. The 1st screw placed was a good proximal screw, which was just proximal to the fracture line. This is a bicortical screw through the plate posterior to anterior. This was acted as an antiglide and once the area was compressed, aided in the reduction of the fracture. Two nonlocking screws were placed to the distal aspect of the plate across the fracture to compress the fracture fragment. These were also bicortical and then locking screws were placed distally and proximally to hold the plate in position. Final fluoroscopic imaging showed anatomic taoist of the tibial component of the ankle joint. Then, attention was directed to the lateral malleolus, which had been brought out to length. Fluoroscopy had showed that the alignment was acceptable and that the length of the fibula was restored and the ankle mortise was intact. A 1/3 tubular plate was positioned over the posterior aspect of the lateral malleolus spanning the fracture. One distal and 1 proximal nonlocking screw were placed through the plate to help bring the plate in contact with the fibula and also further reduce the fracture and locking screws were placed, 1 distal, and 1 proximal to hold the reduction. Final fluoroscopic imaging showed anatomic alignment of the fibular fracture with appropriate length and intact mortise. The wound was thoroughly irrigated with antibiotic saline. The muscle was repaired with 2-0 Vicryl. Deep fascia repaired with 2-0 Vicryl, subcutaneous closure done with 4-0 Monocryl and skin closure done with yoana. Then, attention directed to the medial malleolus, which had essentially reduced during the repair of the 2 previous fractures. Guidewires for 4.0 cannulated screws were placed at the tip of the medial malleolus just anterior to the midline and advanced across the fracture. Fluoroscopy confirmed the proper positioning of the screws, both on AP and lateral views. The screws were placed over the wire and advanced until the fracture was compressed. Final fluoroscopic imaging showed anatomic alignment of the fractures with asymmetrical ankle joint. Stress testing was done at this time to test the integrity of the syndesmoses and there was no abnormal gapping noted. That wound was also irrigated and closed with yoana. Arthrex jumpstart was placed over both incisions and then a bulky dry dressing was applied to the right leg. Then, a well-padded, well- molded posterior mold/sugar-tong splint was applied to the leg and the ankle held in neutral position until dried. The tourniquet was released and capillary refill returned to all digits on the right foot. The patient tolerated the above procedure and anesthesia well, went to recovery with vital signs stable. MMODL / IJN: [id number] /
--- NOTE | 2023-12-16 18:21 | FL ---
EXAMINATION TYPE: FL guidance operating room, XR ankle limited RT COMPARISON: Pre Operative Images if available both CT/MRI or plain film CLINICAL INDICATION: Female, 63 years old with history of ORIF RIGHT ANKLE; TECHNIQUE: FL guidance operating room, XR ankle limited RT, multiple fluoroscopic images provided for procedure. Total fluoroscopy time: 1.47 seconds minutes Total submitted images to PACS: 3 DAP: 0.8101 mGym2 Gycm2 uGym2 cGycm2 FINDINGS: Fluoroscopic images during internal fixation/arthroplasty demonstrate fixation hardware in appropriat e position. Hardware appears intact. No immediate complication identified. IMPRESSION: 1. No evidence for intraoperative complication. 2. Please see the operative/procedural note for further details. [facility], , 12/16/2023 6:18 PM
== END 2023-10-24 13:00 | disposition home or self-care (01) ==
LOC: OR 07:00
PROVIDERS: ATTEND Podiatrist
DX: S82.851A Displaced trimalleolar fracture of right lower leg, initial encounter for closed fracture (principal); S93.431A Sprain of tibiofibular ligament of right ankle, initial encounter; V18.0XXA Pedal cycle driver injured in noncollision transport accident in nontraffic accident, initial encounter; Y93.55 Activity, bike riding
CPT/HCPCS: 64445; 64450

== ENCOUNTER 2023-11-07 11:33 | Emergency (ER) | payer MEDICARE ==
--- NOTE | 2023-12-04 08:42 | US ---
Report Patient: Lisbet Reynaga Ordering Physician: Unknown, Unknown ID: [id number] Phone, Pager: Phone: N/A Pager: N/A : [phone] Age/Gender: 63Y, F Primary Location: N/A Procedure: US venous doppler duplex LE RT Study Date: 11/07/2023 5:03:00 PM EXAMINATION TYPE: US venous doppler duplex LE RIGHT DATE OF EXAM: 11/07/2023 7:04 PM COMPARISON: NONE CLINICAL INDICATION: 63 year-old female right ankle pain and swelling, surgery one to 2 weeks ago. SIDE PERFORMED: Right TECHNIQUE: The lower extremity deep venous system is examined utilizing real time linear array sonog sebastián with graded compression, doppler sonography and color-flow sonography. VESSELS IMAGED: Common Femoral Vein Deep Femoral Vein Greater Saphenous Vein * Femoral Vein Popliteal Vein Small Saphenous Vein * Proximal Calf Veins (* superficial vessels) Grayscale, color doppler, spectral doppler imaging performed of the deep veins of the lower extremiti es. There is normal flow, compressibility, vascular waveforms. Right Leg: Negative for DVT Incidental adenopathy in the right inguinal region measuring measuring (1) 2.5 x 1.1 x 1.6 cm and (2) 3.9 x 0.7 x 1.5 cm. IMPRESSION: 1. No evidence for DVT within the bilateral lower extremities imaged from the groin to the upper calv es. 2. Borderline right inguinal adenopathy probably reactive/post inflammatory. Recommend clinical follo w-up and ultrasound at 6-8 weeks to ensure stability/resolution.
== END 2023-11-07 18:40 | disposition home or self-care (01) ==
LOC: EC 11:33
CPT/HCPCS: 99284